=== PATIENT | female | born 1985 | race Caucasian/White ===

== ENCOUNTER 2018-10-14 09:30 | Outpatient (AMBR) | payer MEDICAID, SELFPAY ==
--- NOTE | 2018-10-04 10:58 | PTNOTE_ITS ---
PT OP Initial Eval Patient Information Visit Reasons: left shoulder Medical Diagnosis: M75.02; L73.2 Treatment Dx #1: Left Shoulder Mobility Deficits Treatment Dx #2: Left Shoulder Weakness Start of Care: 10/04/18 Initial Assessment Subjective Pt is a 33 y/o female with a skin condition (hidradenitis suppurativa) who recently had a skin graft in 2018 that failed due to infection. Pt has been sent to a specialist in [facility] and will have her second consultation October 21, 2018. At this point Pt is unsure of her treatment plan. Pt's wound doctor will like her to start physical therapy to maintain her left shoulder mobility. Pt further has Lupus which intermittently will cause her to have more inflammation. Pt's average left shoulder pain is 2-12/10 depended upon her activities and day. Pt currently has difficulty with lifting, chores, cooking, cleaning, overhead motions, sleeping, and performing her self care activities. Pt still attempts the gym as often as she can weekly working on her legs. Objective Left Shoulder AROM (with pain) Flexion: 85 deg Abduction: 35 deg External Rotation: 80 deg measure at 45 deg of abduction Internal Rotation: 70 deg meassure at 45 deg of abduction Left Shoulder PROM Flexion: 90 deg Abduction: 45 deg External and Internal Rotation: WFL Left Shoulder MMTs: grossly 3-/5 Left Scapula MMTs: grossly 3-/5 Assessment Pt demonstrate left shoulder mobility and strength deficits leading to decline function and difficulty with functional tasks. Pt still exhibit small open wounds underneath her left armpit, however, is safe to perform physical therapy. Pt will benefit from physical therapy to increase strength, mobility, and work on shoulder stability. Short Term and Skilled Nursing Goals 1) Decrease left shoulder pain to 2/10 in 8 wks to be able to perform self care activities 2) Increase left shoulder AROM WFL in 8 wks to be able to perform overhead motions 3) Increase left shoulder MMTs to 3+/5 in 8 wks to be able to perform lifting activities up to shoulder height 4) Increase left scapula MMTs to 3+/5 in 8 wks to be able to perform chores 5) Increase left shoulder PROM WNL in 8 wks to prevent frozen shoulder 6) Indep with HEP Treatment Plan 1) Manual Therapy 2) Therapeutic Activities 3) Therapeutic Exercises 4) This patient will be transfer to Hosea Burnett, PT, DPT Frequency and Duration 2 x wk for 8 wks Certification Dates: 10/04/18 to 01/04/19 Office Procedures PT Procedures PT Date of Service: 10/04/18 OP PT Arnol Mod Complex 30 minutes: Yes
--- NOTE | 2018-10-10 09:09 | PT.ODAYNRPT ---
PT Outpatient Daily Note Date of Service: October 10, 2018 OP Daily Note Visit Reasons: left shoulder Outpatient Physical Therapy Treatment Date: 10/10/18 Subjective: Pt reports open skin under L armpit that limits L shoulder ROM Objective: SEe F/S for therex MT: light PPM into FF, abd and ERot x10' Assessment: Shoulder elevation limited by open skin wounds in axilla and capsular tightness. Plan: Continue as tolerated Length of Time (minutes) of Treatment: 30 Minutes Office Procedures PT Procedures PT Date of Service: 10/04/18 OP PT Eval Mod Complex 30 minutes: Yes PT Procedures PT Date of Service: 10/10/18 Therapeutic Exercise 15 minutes: Yes Manual Roving Sizer 15 minutes: Yes
--- NOTE | 2018-10-14 11:43 | PTNOTE_ITS ---
PT Outpatient Daily Note Date of Service: October 14, 2018 OP Daily Note Visit Reasons: left shoulder Outpatient Physical Therapy Treatment Date: 10/14/18 Subjective: pt c/o pain as she pushes the wand upward but not when she brings the wand back down. Objective: see flow sheet. Assessment: during PROM her shoulder did not seem tight as she let me stretch her into flexion with good range. what prevents to push a bit more is her pain and discomfort. at times pt needed to be cued pt relax her shoulder during PROM as she is still guarded. Plan: continue POC per PT. Length of Time (minutes) of Treatment: 30 Minutes Office Procedures PT Procedures PT Date of Service: 10/04/18 OP PT Eval Mod Complex 30 minutes: Yes PT Procedures PT Date of Service: 10/10/18 Therapeutic Exercise 15 minutes: Yes Manual Seeing Eye Dog Teacher 15 minutes: Yes PT Procedures PT Date of Service: 10/14/18 Therapeutic Exercise 30 minutes: Yes
== END 2018-11-03 23:59 | disposition home or self-care (01) ==
PROVIDERS: PCP Family Medicine; Referring Provider Family Medicine; Visit Provider Surgery
DX: M75.02 Adhesive capsulitis of left shoulder (principal); L73.2 Hidradenitis suppurativa; E66.9 Obesity, unspecified; I10 Essential (primary) hypertension
CPT/HCPCS: 97110; 97140; 97162

== ENCOUNTER 2025-03-13 14:27 | Inpatient (IN) | payer MEDICAID, SELFPAY ==
[2025-03-13] VITALS (10 sets, daily range): BP systolic 120–136; BP diastolic 77–100; PULSE 104–128; RESP 15–98; TEMP 36–37.1; O2SAT 93–97; BMI 44.5
--- NOTE | 2025-03-13 14:38 | XR_ITS ---
Examination: AP chest single view Technique one AP portable upright chest single view Date and time: March 23, 2025 1446 hours Comparison March 10, 2020 INDICATIONS: Chest pain short of breath today. FINDINGS: Pneumonia diffusely in the left lung. Mild enlargement cardiac contour with moderate vascular congestion The osseous structures are intact IMPRESSION: Significant left lung pneumonia
--- NOTE | 2025-03-13 14:38 | EKG_ITS ---
[facility] Test Date: 2025-03-13 Pat Name: HARISH FUNES Department: Room: - Gender: Female [employer] Marker: : 1985 Requested By: Miroslava Roman Order Number: [id number] Reading MD: Miroslava Roman Measurements Intervals [place] Rate: 111 P: 53 DC: 141 QRS: 49 QRSD: 89 T: -10 QT: 340 QTc: 462 Interpretive Statements SINUS TACHYCARDIA POSSIBLE LEFT ATRIAL ENLARGEMENT [-0.1mV P-WAVE IN V1/V2] NONSPECIFIC ST & T-WAVE ABNORMALITY ABNORMAL RHYTHM ECG Compared to ECG 03/10/2020 17:23:53 No significant changes /store/S0/[id number]/ecg/[id number].pdf
--- NOTE | 2025-03-13 14:43 | EDNOTE_ITS ---
ED SOB =RME/HPI General Chief Complaint: Shortness of Breath/Dyspnea Stated Complaint: SOB Time Seen by Provider: 03/13/25 14:35 Arrival date/time: 03/13/25 14:27 RME / HPI RME / HPI Narrative: DR. ROCHA MAIN ED EVALUATION: 40-year-old female presents to the Emergency Department BIBA via EMS for shortness of breath. Per EMS, patient was tachypneic with severe rales, coughing up small amounts of blood, and oxygen saturation of 84% on room air, improved to 95% with non-rebreather mask. Blood pressure 132/84, heart rate 128 and in sinus tachycardia. Received nitroglycerin en route. No other symptoms at this time. PMHx: CHF (diagnosed 2019), pulmonary hypertension (2019), systemic lupus erythematosus (2010), and antiphospholipid antibody syndrome (2013), and obesity. PSHx: Cholecystectomy (2003), skin graft, and gastric sleeve (2015). Allergies: Tramadol. Social Hx: No tobacco, alcohol, or substance use. Related Data Home Medications ?Medication ?Instructions ?Recorded ?Confirmed aspirin 81 mg chewable tablet 81 mg PO QDAY 03/11/20 0 03/11/20 hydroxychloroquine 200 mg tablet 200 mg PO QDAY 03/11/20 (Plaquenil) sertraline 100 mg tablet 100 mg PO QDAY 03/11/2001/23 Previous Rx's ?Medication ?Instructions ?Recorded fluticasone propionate 50 50 mcg intranasal Q12H #18.2 grams 07/03/19 mcg/actuation nasal spray,suspension (Flonase Allergy Relief) Allergies Allergy/AdvReac Type Severity Reaction Status Date / Time tramadol Allergy Irritable Verified 03/13/25 14:39 Review of Systems Review of Systems Systems Reviewed: All systems reviewed, normal except as documented Past Medical History Past Medical History NEUROLOGIC: Positive Neurological Disorders and Migraine CARDIAC: Positive Cardiac Disorders RESPIRATORY: Positive Asthma and Sleep Apnea GASTROINTESTINAL: Positive Gastrointestinal Disorders, Gall Bladder Disease and Obesity REPRODUCTIVE: Positive Previous Pregnancies MUSCULOSKELETAL: Positive Musculoskeletal Disorders, Arthritis, Rheumatoid Arthritis, Scoliosis and Fibromyalgia ENDOCRINE: Positive Endocrine Disorders and Systemic Lupus Erythematosus HEMATOLOGIC: Positive Anemia and Clotting Problems PSYCHO/SOCIAL: Positive Depression, Anxiety, Depression and Post Traumatic Stress Disorder OTHER HISTORY: Positive Blood Transfusions and Chicken Pox Family History FAMILY HISTORY: Positive Family Cardiac Disorders and Family Surgery Surgical History SURGICAL: Positive Abdominal Surgery and Gastric Bypass Surgery OTHER SURGICAL HX: Hidradenitis suppurativa Social History SMOKING STATUS: Current some day smoker SUBSTANCE USE: marijuana (Edibles. Uses CBD oil) ED Exam Narrative Physical exam: GENERAL APPEARANCE: alert and oriented x 4, well-developed, well-nourished, no acute distress, obese VITALS: All vitals were reviewed and the pulse ox is 84% on room air, which is hypoxic according to my interpretation. HEENT: Normocephalic, atraumatic; pupils equal, round, reactive to light; EOMI; mucous membranes pink, moist; oropharynx clear NECK: Supple LUNGS: Tachypneic, mild dyspnea, scarring of bilateral lungs HEART: Regular rate, regular rhythm; normal S1, S2; no murmurs ABDOMEN: non distended; normal BS; soft, no tenderness, no guarding, no rebound; no masses, no organomegaly, no hernia BACK: no CVA tenderness EXTREMITIES: atraumatic; no edema NEUROLOGIC: awake; alert and oriented x4; cranial nerves II-XII grossly intact; no focal sensory or motor deficits PSYCHIATRIC: appropriate mood and affect SKIN: warm, dry, normal color; no rashes Course Quality Measures none Orders Category Date Time Status Bedside COVID-19 Antigen Test NOW Care 03/13/25 17:09 Active Bedside Influenza A&B Antigen Test NOW Care 03/13/25 17:[address] Screening NOW Care 03/13/25 14:44 Active Freight Claim Investigator NOW Care 03/13/25 14:38 Active EKG (ED ONLY) *Do not use* NOW Care 03/13/25 14:[address] angio chest Stat Exams 03/13/25 14:44 Completed EKG (ED Only) Stat Exams 03/13/25 14:38 Draft XR chest 1V portable Stat Exams 03/13/25 14:38 Completed B-Type Natriuretic Peptide Stat Lab 03/13/25 15:15 Completed Blood Culture (Lab) Stat Lab 03/13/25 17:42 Received CBC Stat Lab 03/13/25 15:15 Completed Comprehensive Metabolic Panel Stat Lab 03/13/25 15:15 Completed ESR [Sed Rate (ESR)] Stat Lab 03/13/25 15:15 Completed HCG,Qualitative Serum Stat Lab 03/13/25 15:15 Completed Lactate (Lactic Acid) Stat Lab 03/13/25 17:37 Received Lipase Stat Lab 03/13/25 15:15 Completed Magnesium Stat Lab 03/13/25 15:15 Completed Partial Thromboplastin Time Stat Lab 03/13/25 15:15 Completed Procalcitonin Stat Lab 03/13/25 17:37 Received Prothrombin Time with INR Stat Lab 03/13/25 15:15 Completed Troponin I Stat Lab 03/13/25 15:15 Completed Azithromycin Inj [Zithromax Inj] 500 mg Med 03/13/25 17:11 Active Sodium Chloride 0.9% 250 ml [Ns] 250 ml IV X1 Morphine Inj Med 03/13/25 16:38 Discontinued 5 mg IVP X1 ONE Ondansetron Inj [Zofran Inj] Med 03/13/25 16:38 Discontinued 4 mg IVP X1 ONE cefTRIAXone/D5w 1gm IV premix [Rocephin/D5w 1gm IV Med 03/13/25 17:11 Discontinued premix] 1 gm in 50 ml IV X1 Vital Signs Vital signs: Vital Signs Pulse Rate 119 H 03/13/25 14:41 Shortness of Breath / Dyspnea MDM Narrative MDM Narrative:: INyasia, am scribing for and in the presence of Dr. Rocha. Patient data External records reviewed:: [facility] previous records and EMS form Clinical information provided by:: patient and EMS Social determinants that could affect healthcare access:: none Patient has the following chronic illnesses:: PMHx: CHF (diagnosed 2019), pulmonary hypertension (2019), systemic lupus erythematosus (2010), and antiphospholipid antibody syndrome (2013), and obesity. PSHx: Cholecystectomy (2003), skin graft, and gastric sleeve (2015). Allergies: Tramadol. How is presenting disease/condition affected by chronic disease/condition?: exacerbated by Evaluation data The following diagnostics were reviewed and interpreted by me:: lab results, radiology exam(s) and EKG tracing(s) (My interpretation: EKG performed at 1456 hours, sinus tachycardia, rate 111, ST depressions in V3-V4, T wave inversion in lead 3) Lab and/or radiology exams considered but not ordered:: none Interpretation Summary: Procedure(s): XR chest 1V portable Accession Number(s): [id number] cc: Piotr Abreu MD; Miroslava Rocha MD~ Examination: AP chest single view Technique one AP portable upright chest single view Date and time: March 23, 2025 1446 hours Comparison March 10, 2020 INDICATIONS: Chest pain short of breath today. FINDINGS: Pneumonia diffusely in the left lung. Mild enlargement cardiac contour with moderate vascular congestion The osseous structures are intact IMPRESSION: Significant left lung pneumonia Dictated By: Piotr Abreu MD Procedure(s): CT angio chest Accession Number(s): [id number] cc: Karyna CaballeroP; Piotr Abreu MD; Miroslava Rocha MD~ Examination: CTA chest with intravenous contrast 2-D reconstructions 3-D reconstructions, vascular Date and time of exam: March 13, 2025 1659 hours INDICATIONS: Shortness of chest pain onset today CTDI: vol (mGy) 4.24 DLP: (mGycm) 565 Technique: Multiple axial sections of the thorax have been obtained. 3 mm slice thickness, from below the hemidiaphragms to above the apices of the lungs. Mediastinal and lung density settings have been obtained. 2-D sagittal and coronal reconstructions. 3-D angiographic renderings, 3-D volume renderings, 3D post processing, vascular maximum intensity projections obtained. Contrast administered is 100 cc Isovue-370. Low dose protocols were performed. One or more of the following dose reduction techniques were used; automated exposure control, adjustment of the mA and/or KV according to patient size, use of iterative reconstruction technique. Findings: No thoracic aortic aneurysmal dilatation or dissection Pulmonary artery segments are not enlarged No pulmonary artery emboli Multiple lymph nodes adjacent to the thoracic aortic arch, the largest 14 mm, lymph node adjacent to the main left pulmonary artery branch, 17 mm Subcentimeter pretracheal lymph nodes Mild enlargement cardiac contour Extensive opacity in both lungs consistent with pneumonia Mild splenomegaly 13 cm Liver mildly irregular in contour Absent gallbladder No pancreatic mass IMPRESSION: No thoracic aortic aneurysm dilatation or dissection Negative for pulmonary artery emboli Extensive bilateral pneumonia, suspicious for mild associated or heart failure. Nonspecific mediastinal lymphadenopathy. Mild splenomegaly Dictated By: Piotr Abreu MD Medications / Prescriptions Medications or Prescriptions considered but not ordered:: none Medication administrations:: Medication Administration History Azithromycin 500 mg/ Sodium (Chloride) 250 mls @ 250 mls/hr IV X1 ONE Stop: 03/13/25 18:10 Discontinued Medications Ceftriaxone Sodium/Dextrose (Rocephin/D5w 1gm Iv Premix) 1 gm in 50 mls @ 100 mls/hr IV X1 ONE Stop: 03/13/25 17:40 Last Admin: 03/13/25 17:46 Dose: 100 mls/hr Documented By: KAREN Morphine Sulfate (Morphine Sulf Inj 10 Mg/Ml Vial) 5 mg IVP X1 ONE Stop: 03/13/25 16:39 Last Admin: 03/13/25 16:45 Dose: 5 mg Documented By: KAREN Ondansetron HCl (Ondansetron Inj 2 Mg/Ml Inj 2 Ml) 4 mg IVP X1 ONE Stop: 03/13/25 16:39 Last Admin: 03/13/25 16:46 Dose: 4 mg Documented By: KAREN see above if any Consultations Consultation(s) initiated? (list below): Yes Consultation #1 (Physician, Specialty, Details): Discussed test HPI, PMHx, lab, radiology results and/or management with resident working with the hospitalist. Will admit for further evaluation and management. Accepts patient for admission. Time: 17:43 Diagnosis Shortness of Breath Differential Diagnosis: congestive heart failure, community acquired pneumonia, pulmonary embolism and other (acute decompensated heart failure) Most likely diagnosis given after review of the tests above:: CHF Pneumonia Hypoxia Admission Indicated Admission indicated?: indicated Admission Request Was there a request for admission?: Yes Admission Attestation Admission request attestation: Discussed case with [] from Hospitalist service regarding admission. Discussed patients ED course, exam findings, labs, and radiology results. The Hospitalist [agrees,declines] to accept the patient for admission. Disposition Plan Disposition Plan: Admit Discharge Plan Plan Patient Disposition: Admit Acute Care w/in Hospital Prescriptions/Referrals Prescriptions/Med Rec: No Action sertraline 100 mg Tablet 100 mg PO QDAY aspirin 81 mg Tablet,Chewable 81 mg PO QDAY hydroxychloroquine [Plaquenil] 200 mg Tablet 200 mg PO QDAY fluticasone propionate [Flonase Allergy Relief] 50 mcg/actuation spray,suspension 50 mcg INTRANASAL Q12H Qty: 18.2 0RF Rx Instructions: administer into each nostril Referrals: Karyna Caballero FNP [Primary Care Provider] - In 1 week Problem List Clinical Impression: CHF (congestive heart failure), Pneumonia, Hypoxia Patient/Caregiver Discharge Instructions Print Language: Mongolian Stand Alone Forms: Marina Award Info., Patient Portal Info Letter
[2025-03-13 15:33] LABS: Basophils # (Auto) 0.1 Thou/mm3 (0.0-0.2); Basophils % (Auto) 1 % (0-2.5); Eosinophils # (Auto) 0.1 Thou/mm3 (0.0-0.5); Eosinophils % (Auto) 1 % (0-10); Hematocrit 30.5 % (36.0-46.0); Hemoglobin 9.1 g/dL (12.0-16.0); Immature Granulocytes Auto 0.05 Thou/mm3 (0.00-0.00); Lymphocytes # (Auto) 0.9 Thou/mm3 (1.0-4.8); Lymphocytes % (Auto) 8 % (10-50); Mean Corpuscular HGB Conc 29.8 g/dl (31.0-37.0); Mean Corpuscular Hemoglobin 22.2 pg (25.0-35.0); Mean Corpuscular Volume 75 fL (80-100); Monocytes # (Auto) 0.4 Thou/mm3 (0.0-0.8); Monocytes % (Auto) 4 % (0-12); Neutrophils # (Auto) 8.9 Thou/mm3 (1.8-7.7); Neutrophils % (Auto) 86 % (37-80); Nucleated Red Blood Cell # 0.00 Thou/mm3 (0.00-0.00); Nucleated Red Blood Cell % 0 /100 WBC (0); Platelet Count 185 Thou/mm3 (140-440); RDW Standard Deviation 48.0 fL (36.4-46.3); Red Blood Count 4.09 Miln/mm3 (4.00-5.20); White Blood Count 10.4 Thou/mm3 (3.6-11.0)
[2025-03-13 15:49] LABS: B-Type Natriuretic Peptide 71 pg/mL (0-100)
[2025-03-13 15:51] LABS: INR 1.2 (0.9-1.3); Partial Thromboplastin Time 42.4 Seconds (22.0-36.0); Prothrombin Time 13.0 Seconds (9.0-12.2)
[2025-03-13 16:02] LABS: Alanine Aminotransferase 8 U/L (10-49); Albumin, Serum 3.5 gm/dL (3.5-5.0); Albumin/Globulin Ratio 1.1 (1.2-2.2); Alkaline Phosphatase 72 U/L (46-116); Anion Gap 9 (7-16); Aspartate Amino Transferase 17 U/L (0-34); BUN/Creatinine Ratio 12 Ratio (12-20); Bilirubin,Total 0.4 mg/dL (0.3-1.2); Blood Urea Nitrogen 12 mg/dL (9-23); Calcium 8.6 mg/dL (8.3-10.6); Calcium (Corrected) 9.0 mg/dL (8.5-10.1); Carbon Dioxide 24.8 mMol/L (20.0-31.0); Chloride 106 mMol/L (98-107); Creatinine (Component) 1.0 mg/dL (0.6-1.3); Estimated Creatinine Clearance 89.1 mL/min (>60); Globulin 3.2 gm/dL (2.3-3.5); Glucose 95 mg/dL (74-106); Lipase 27 U/L (12-53); Magnesium 1.9 mg/dL (1.6-2.6); Osmolality,Calculated 279 (275-295); Potassium 3.5 mMol/L (3.4-5.1); Sodium 140 mMol/L (136-145); Total Protein 6.7 gm/dL (5.7-8.2); Troponin I < 0.020 ng/mL (0.0-0.045); eGFR > 60 See Note
[2025-03-13 16:09] LABS: Sed Rate (ESR) 107 mm/hr (0-20)
[2025-03-13 16:36] LABS: HCG,Qualitative Serum Negative
[2025-03-13] MEDS: MORPHINE SULF INJ 10 MG/ML VIAL 5 MG IVP (16:45)
[2025-03-13] MEDS: ONDANSETRON INJ 2 MG/ML INJ 2 ML 4 MG IVP (16:46)
[2025-03-13] MEDS: cefTRIAXone/D5w 1gm IV premix 1 GM/50 ML BAG IV (17:46)
[2025-03-13 17:52] LABS: Lactate (Lactic Acid) 1.3 mMol/L (0.4-2.0)
[2025-03-13 18:29] LABS: Procalcitonin 0.12 ng/ml (0.0-0.49)
[2025-03-13] MEDS: AZITHROMYCIN INJ 500 MG in SODIUM CHLORIDE 0.9% 250 ML 250 ML 250 MG IV (18:39)
[2025-03-13] MEDS: ALBUTEROL/IPRATROPIUM (Duoneb) RT SOL 3 ML NEBU INH (19:56)
--- NOTE | 2025-03-13 19:56 | PC.NURSE ---
SPOKE WITH DR. CHRISTIE VIA TELEPHONE REGARDING LASIX AND HEPARIN MEDICATIONS, PER PATIENT SHE TOOK LASIX 40MG PO AND COUMADIN 1MG TODAY, DR. CHRISTIE MADE AWARE AND ORDERED TO HOLD LASIX AND HEPARIN DOSE FOR TONIGHT.
--- NOTE | 2025-03-13 20:49 | ESHP_ITS ---
<Statement entered by Chente Sinha MD - 03/14/25 15:54> I have reviewed the note and agree with the resident's assessment & plan with exceptions as below. I have personally reviewed labs, imaging, home meds/prior records, examined the patient, formulated and discussed management plan with the IM team. And SLE. Patient reports that she took a break from seeing doctors and has been off of a number of medicines. She also reports that she has been coughing up some blood. She reports that a lot of her medical records are at [place]. Patient examined at bedside today. Patient does have a history of antiphospholipid syndrome, pulmonary hypertension, CHF, ligament endocarditis, she says that she used to continues to take warfarin and check her INR levels at home, however she has not been taking her medicine lately as she is out of the equipment to test her INR. Patient will need further workup including CHF workup and pneumonia treatment as patient was found to have extensive bilateral pneumonia which was seen on CTA. Will initiate antibiotics and continue with IV diuresis. Repeat hematology and chemistry in the a.m. Will need a thorough med rec for patient, will likely need to optimize patient's INR if patient has not been taking their warfarin as they are at high risk for stroke with antiphospholipid syndrome. #Acute hypoxic respiratory failure #Antiphospholipid syndrome #SLE #Community-acquired pneumonia #Hemoptysis #Hidradenitis suppurativa Chente Sinha, PGY-2 Internal Medicine Documentation for date of: 03/13/25 HPI History of Present Illness History of present illness: Patient is a 40-year-old female with past medical history of CHF and pulmonary hypertension diagnosed in 2019, SLE diagnosed in 2010, antiphospholipid antibody syndrome diagnosed in 2013, endocarditis, hidradenitis suppurativa, obesity presented to the emergency department with shortness of breath. Patient states that she has a history of trouble sleeping at night, went to bed early in the morning and ended up waking up waking up at 1:30 PM this afternoon short of breath as soon as she sat up. She stated that her chest felt crunchy and proceeded to take her water pill, Lasix. Patient got in a hot shower thinking it would help her breathe better, but then she started coughing and she noticed there was some blood in the sputum. She states she coughed a few times with blood showing up. Patient states that she has not taken Lasix in 2 days because she has forgotten. Patient states that she chipped her tooth 2 days ago and was taking amoxicillin for it. Patient states she takes warfarin for antiphospholipid antibody syndrome, states she needs refills for her at home INR machine. Patient endorses voluntary weight loss of around 150 pounds in the last 5 years, palpitations, chronic sinusitis and anxiety. Patient denies fever headache dyspnea chest pain, abdominal pain nausea vomiting, diarrhea, constipation, dysuria, hematuria. Past Medical History: above Family History: Heart problems in mother, aunt, dad. No known SLE fam hx. Surgical History: Kate (2004), skin graft, gastric sleeve (2016) Social History: Uses a vape pen, occasional alcohol; hx of meth & cocaine 20+ years ago Current Medications: Patient states she takes 10 mg [place], muscle relaxant 10 mg, 40 mg sleep medication (not melatonin), 20 mg melatonin, cannabis Gummies for sleep, 1 mg warfarin (patient reported INR goal of 3-4), iron 325 mg nightly, Lasix 40 mg daily Allergies: Tramadol ED Course: -Initial vitals were Oxygen saturation of 84 that went up to 95% with nonrebreather, blood pressure 132/84, heart rate 128. -Labs significant for WBC 10.4, hemoglobin 9.1 with MCV 75, PT 13.0, INR 1.2, APTT 42.4. Blood cultures drawn -Imaging included Chest x-ray showed significant left lung pneumonia, chest CTA was negative for aneurysm, dissection, pulmonary artery emboli; extensive bilateral pneumonia suspicious for mild associated or heart failure, nonspecific mediastinal lymphadenopathy, mild splenomegaly. EKG showed sinus tachycardia with possible left atrial enlargement -In the ED, patient was given Morphine 5 mg, ondansetron 4 mg x 1, ceftriaxone 1 g. -Patient was admitted for evaluation and management of respiratory failure. Review of Systems Review of systems otherwise negative except what is mentioned above. Exam Vital Signs Temp Pulse Resp BP Pulse Ox O2 Del Method O2 Flow Rate 98.2 F 108 H 16 127/93 H 95 Room Air 2 03/13/25 18:46 03/13/25 20:06 03/13/25 20:06 03/13/25 19:24 03/13/25 20:00 03/13/25 18:46 03/13/25 16:49 Narrative Exam General: No acute distress; A&Ox3; Skin: Extensive hidradenitis suppurativa under both armpits extending down both mid axillary lines rounding out under the breasts bilaterally and in the pubic area extending posteriorly to the gluteal area, does not appear infected; livedo reticularis present on extremities. Warm, dry, intact, no obvious rash. HENT: NCAT, EOMI, not icteric. External ears normal. No rhinorrhea. Moist mucous membranes Cardiovascular: Regular rate and rhythm, no murmur, +S1/S2. Respiratory: Lungs CTAB GI: Soft, nontender, non-distended. No guarding or rebound tenderness. Extremities: no edema, no cyanosis, no clubbing. Extremity pulses present Neuro: No focal deficits observed. Conversant, moving all extremities. No overt cerebellar signs/incoordination. Psychiatric: Cooperative, appropriate affect. Results: Labs 03/14/25 05:10 03/14/25 05:10 Labs: Short CBC 03/13/25 Range/Units 15:15 WBC 10.4 (3.6-11.0) Thou/mm3 Hgb 9.1 L (12.0-16.0) g/dL Hct 30.5 L (36.0-46.0) % Plt Count 185 (140-440) Thou/mm3 BMP 03/13/25 15:15 Sodium 140 Potassium 3.5 Chloride 106 Carbon Dioxide 24.8 BUN 12 Creatinine 1.0 Glucose 95 Calcium 8.6 Cardiac Enzymes 03/13/25 Range/Units 15:15 Troponin I < 0.020 (0.0-0.045) ng/mL Liver Function 03/13/25 Range/Units 15:15 Total Bilirubin 0.4 (0.3-1.2) mg/dL AST 17 (0-34) U/L ALT 8 L (10-49) U/L Alkaline Phosphatase 72 (46-116) U/L Albumin 3.5 (3.5-5.0) gm/dL Quality Measures Quality Measures VTE prophylaxis Medications Home Medications and Allergies Home Medications ?Medication ?Instructions ?Recorded ?Confirmed ?Type aspirin 81 mg chewable tablet 81 mg PO QDAY 03/11/20 0 03/13/25 History hydroxychloroquine 200 mg tablet 200 mg PO QDAY 03/13/25 History (Plaquenil) sertraline 100 mg tablet 100 mg PO QDAY 03/11/2003/30 History albuterol sulfate 90 mcg/actuation 2 puff inhalation Q 4H PRN 03/13/25 03/13/25 History aerosol inhaler shortness of breath or wheez ing azithromycin 250 mg tablet 250 mg PO QDAY 03/13/2503/30 History cyclobenzaprine 10 mg tablet 10 mg PO HS 03/13/2503/30 History ferrous sulfate 325 mg (65 mg 325 mg PO QDAY 03/13/25 03/13/25 History iron) tablet furosemide 40 mg tablet (Lasix) 40 mg PO QDAY 03/13/25 03/13/25 History nitroglycerin 0.4 mg sublingual 0.4 mg buccal Q5MIN CA N chest pain 03/13/25 03/13/25 History tablet tirzepatide (weight loss) 12.5 12.5 mg subcut QWEEK 03/13/25 History mg/0.5 mL subcutaneous pen injector (Zepbound) trazodone 50 mg tablet 50 mg PO HS PRN sleep 03/13/25 History warfarin 1 mg tablet 1 mg PO QDAY 03/13/25 History Allergies Allergy/AdvReac Type Severity Reaction Status Date / Time tramadol Allergy Irritable Verified 03/13/25 14:39 Visit Medications Acetaminophen (Acetaminophen 325 Mg Tablet) 650 mg PO Q6H PRN PRN Reason: Fever >100.0 or pain 1-3 Stop: 04/12/25 18:41 Hydrocodone Bitart/Acetaminophen (Hydrocodone/Apap 10/325 Tab) 1 tab PO Q4HR PRN PRN Reason: PAIN SCALE 7-10 (Severe Stop: 03/18/25 18:41 Hydrocodone Bitart/Acetaminophen (Hydrocodone/Apap 5/325 Tablet) 1 tab PO Q4HR PRN PRN Reason: PAIN SCALE 4-6 (Moderate Stop: 03/18/25 18:52 Albuterol/Ipratropium (Albuterol/Ipratropium (Duoneb) Rt Estefany 3 Ml Nebu) 3 ml INH Q6HRRT ASH Stop: 04/12/25 18:59 Last Admin: 03/13/25 19:56 Dose: 3 ml Furosemide (Furosemide Inj 10 Mg/Ml 4ml Vial) 40 mg IVP BIDD [facility] Stop: 04/13/25 05:59 Heparin Sodium (Porcine) (Heparin Sod Inj 5000 Unit/Ml Vial) 5,000 unit SC Q12HR [facility] Stop: 03/27/25 18:59 Last Admin: 03/13/25 19:32 Dose: Not Given Ceftriaxone Sodium/Dextrose (Rocephin/D5w 1gm Iv Premix) 1 gm in 50 mls @ 100 mls/hr IV QDAY [facility] Stop: 03/21/25 08:59 Azithromycin 500 mg/ Sodium (Chloride) 250 mls @ 250 mls/hr IV QDAY [facility] Stop: 03/21/25 08:59 Melatonin (Melatonin 3 Mg Tablet) 3 mg PO HS [facility] Stop: 04/12/25 20:59 Last Admin: 03/13/25 20:46 Dose: Not Given Ondansetron HCl (Ondansetron Inj 2 Mg/Ml Inj 2 Ml) 4 mg IVP Q6H PRN; Protocol PRN Reason: NAUSEA OR VOMITING Stop: 04/12/25 18:41 Pantoprazole Sodium (Pantoprazole Inj 40 Mg Vial) 40 mg IVP QDAY [facility] Stop: 04/13/25 08:59 Discontinued Medications Cyclobenzaprine HCl (Cyclobenzaprine 5 Mg Tablet) 5 mg PO X1 ONE Stop: 03/13/25 18:57 Last Admin: 03/13/25 19:04 Dose: 5 mg Furosemide (Furosemide Inj 10 Mg/Ml 4ml Vial) 40 mg IVP X1 ONE Stop: 03/13/25 18:54 Last Admin: 03/13/25 19:24 Dose: Not Given Azithromycin 500 mg/ Sodium (Chloride) 250 mls @ 250 mls/hr IV X1 ONE Stop: 03/13/25 18:10 Last Infusion: 03/13/25 19:40 Dose: Infused Ceftriaxone Sodium/Dextrose (Rocephin/D5w 1gm Iv Premix) 1 gm in 50 mls @ 100 mls/hr IV X1 ONE Stop: 03/13/25 17:40 Last Infusion: 03/13/25 18:39 Dose: Infused Morphine Sulfate (Morphine Sulf Inj 10 Mg/Ml Vial) 5 mg IVP X1 ONE Stop: 03/13/25 16:39 Last Admin: 03/13/25 16:45 Dose: 5 mg Ondansetron HCl (Ondansetron Inj 2 Mg/Ml Inj 2 Ml) 4 mg IVP X1 ONE Stop: 03/13/25 16:39 Last Admin: 03/13/25 16:46 Dose: 4 mg Assessment & Plan Plan Assessment Patient is a 40-year-old female with past medical history of CHF and pulmonary hypertension diagnosed in 2019, SLE diagnosed in 2010, antiphospholipid antibody syndrome diagnosed in 2013, endocarditis, hidradenitis suppurativa, obesity presented to the emergency department with shortness of breath. Patient was admitted for evaluation and management of respiratory failure. # Pneumonia, bilateral, likely secondary to gram-negative versus atypical organisms #Acute Hypoxic Respiratory Failure secondary to above #History of CHF, BNP 71 on arrival, unlikely to be an exacerbation #hx of endocarditis Possibly due to CHF exacerbation after patient endorsed not taking her lasix for 2 days. Possibly due to pneumonia with WBC 10.4, elevated HR 110s, with imaging suggestive of it. Patient breathing well on 2L NC at 97% O2. Admission: Pro-emelia 0.12, BNP 71 CXR: significant left lung pneumonia; Chest CTA was negative for aneurysm, dissection, pulmonary artery emboli; extensive bilateral pneumonia suspicious for mild associated or heart failure Patient given rocephin 1 gm in ED -Patient will start azithromycin 500 mg and Rocephin 1 gm in the morning -Echo ordered -Patient given DuoNeb inhalers every 6 hours as needed -Will start Lasix 40 mg twice daily tomorrow morning -Ordered cbc, cmp, TSH, lipid panel, A1c will follow-up -Blood cultures drawn, follow up -strict I/O's -daily weight #Hemoptysis #anemia Hemoglobin on admission is 9.1 with MCV of 75 May be due to iron deficiency anemia, surgical history of gastric sleeve may also be contributing regarding absorption Patient states she takes 3 and 25 mg iron every night. Patient stated she was coughing up blood this morning Patient states has not been coughing up blood anymore Denies noticing blood in any bowel movements. ? Will continue to monitor for signs and symptoms of bleeding ? Will continue to monitor hemoglobin #SLE #hx of antiphospholipid antibody body syndrome #hx of endocarditis Patient states she takes warfarin 1 mg with goal INR of 3-4 for history of antiphospholipid antibody syndrome diagnosed in 2013 -Will order and continue to monitor coags -Echo ordered #hidradenitis suppurativa, severe Extensive hidradenitis suppurativa under both armpits extending down both mid axillary lines rounding out under the breasts bilaterally and in the pubic area extending posteriorly to the gluteal area, Patient has it covered with gauze; treats it symptomatically at home; does not appear infected. -will continue to monitor for infection. Hospital Management: Disposition: tele Diet: Cardiac GI Prophylaxis: none Bowel Prophylaxis:Protonix 40 mg q day DVT Prophylaxis: heparin CODE STATUS: Full Code Patient plan of care was discussed with the attending physician, Dr. Gastelum & senior resident Dr. Bharath Martinez MD PGY-1 Attending Provider Attestation/Addendum After examination of the patient and review of the clinical data I feel that this patient needs admission to the hospital for further treatment/evaluation. I have discussed and was present for the essential components of the history, physical examination, diagnosis, and treatment plan with the resident. I agree with the patient's care as documented by the resident and amended herein by me. Tello Gastelum DO. Although this document has been carefully reviewed, there may still be some phonetic and other typographical errors. These errors are purely grammatical due to imperfections in the software program and should not be construed in any way to compromise the substance of the patient's medical care during this visit.
[2025-03-14] VITALS (11 sets, daily range): BP systolic 93–132; BP diastolic 57–92; PULSE 90–114; RESP 15–100; TEMP 35.9–36.8; O2SAT 94–100; BMI 45.5
[2025-03-14] MEDS: ALBUTEROL/IPRATROPIUM (Duoneb) RT SOL 3 ML NEBU INH ×4 (01:16→19:07)
[2025-03-14 06:11] LABS: INR 1.3 (0.9-1.3); Partial Thromboplastin Time 46.7 Seconds (22.0-36.0); Prothrombin Time 14.0 Seconds (9.0-12.2)
[2025-03-14 06:22] LABS: Basophils # (Auto) 0.1 Thou/mm3 (0.0-0.2); Basophils % (Auto) 1 % (0-2.5); Eosinophils # (Auto) 0.2 Thou/mm3 (0.0-0.5); Eosinophils % (Auto) 2 % (0-10); Hematocrit 27.1 % (36.0-46.0); Hemoglobin 8.1 g/dL (12.0-16.0); Immature Granulocytes Auto 0.03 Thou/mm3 (0.00-0.00); Lymphocytes # (Auto) 1.4 Thou/mm3 (1.0-4.8); Lymphocytes % (Auto) 20 % (10-50); Mean Corpuscular HGB Conc 29.9 g/dl (31.0-37.0); Mean Corpuscular Hemoglobin 22.8 pg (25.0-35.0); Mean Corpuscular Volume 76 fL (80-100); Monocytes # (Auto) 0.5 Thou/mm3 (0.0-0.8); Monocytes % (Auto) 7 % (0-12); Neutrophils # (Auto) 5.0 Thou/mm3 (1.8-7.7); Neutrophils % (Auto) 70 % (37-80); Nucleated Red Blood Cell # 0.00 Thou/mm3 (0.00-0.00); Nucleated Red Blood Cell % 0 /100 WBC (0); Platelet Count 149 Thou/mm3 (140-440); RDW Standard Deviation 49.5 fL (36.4-46.3); Red Blood Count 3.56 Miln/mm3 (4.00-5.20); White Blood Count 7.2 Thou/mm3 (3.6-11.0)
[2025-03-14 06:49] LABS: Alanine Aminotransferase < 7 U/L (10-49); Albumin, Serum 3.2 gm/dL (3.5-5.0); Albumin/Globulin Ratio 1.1 (1.2-2.2); Alkaline Phosphatase 65 U/L (46-116); Anion Gap 10 (7-16); Aspartate Amino Transferase 20 U/L (0-34); BUN/Creatinine Ratio 8 Ratio (12-20); Bilirubin,Total 0.3 mg/dL (0.3-1.2); Blood Urea Nitrogen 9 mg/dL (9-23); Calcium 8.4 mg/dL (8.3-10.6); Calcium (Corrected) 9.0 mg/dL (8.5-10.1); Carbon Dioxide 26.2 mMol/L (20.0-31.0); Cardiac Risk Estimate 3.0 RATIO (3.7-5.6); Chloride 103 mMol/L (98-107); Cholesterol 149 mg/dL (132-200); Creatinine (Component) 1.1 mg/dL (0.6-1.3); Estimated Creatinine Clearance 82.1 mL/min (>60); Globulin 3.0 gm/dL (2.3-3.5); Glucose 108 mg/dL (74-106); HDL Cholesterol 49 mg/dL (40-60); LDL Cholesterol,Calculated 83 mg/dL (0-130); Magnesium 1.9 mg/dL (1.6-2.6); Osmolality,Calculated 277 (275-295); Phosphorous 4.4 mg/dL (2.4-5.1); Potassium 4.1 mMol/L (3.4-5.1); Sodium 139 mMol/L (136-145); Thyroid Stimulating Hormone 5.62 uIU/mL (0.55-4.78); Total Protein 6.2 gm/dL (5.7-8.2); Triglycerides 85 mg/dL (30-150); eGFR > 60 See Note
[2025-03-14 08:18] LABS: Free T4 (Free Thyroxine) 1.00 ng/dL (0.89-1.76)
[2025-03-14] MEDS: cefTRIAXone/D5w 1gm IV premix 1 GM/50 ML BAG IV (08:21)
[2025-03-14] MEDS: AZITHROMYCIN INJ 500 MG in SODIUM CHLORIDE 0.9% 250 ML 250 ML 250 MG IV (09:18)
--- NOTE | 2025-03-14 09:38 | PC.SS ---
SECURITIES RESEARCH ANALYST conducted bedside contact with the patient conduct initial assessment and to discuss discharge planning.? Patient confirmed demographic information.? Patient resides at home with adult children.? Patient does not utilize any form of DME to assist with ambulation.? Patient does not utilize home oxygen.? Patient possesses a C-PAP but does not utilize machine.? Patient describes the ability to complete ADL?s independently.? Patient identified mother, Amna Snyder ; as surrogate medical decision maker.? Patient?s PCP is Karyna Caballero.? Patient?s [place] specialist is Dr. Ring.? Patient does not participate with dialysis.? Plan is for the patient to return home at the time of discharge.? Family will provide transportation on behalf of the patient. ?No further discharge needs identified by the patient.? No further intervention required at this time, manager social media will be available to address any further concerns.? Next of Kin: Amna Claudio D/C Plan: Home
[2025-03-14] MEDS: ASPIRIN EC 81 MG TABEC PO (09:54)
[2025-03-14] MEDS: WARFARIN 5 MG TABLET PO (12:09)
--- NOTE | 2025-03-14 14:29 | ESCONSULT_ITS ---
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 It is questionable whether she has a cardiac thrombi she claims that she has a cardiac thrombus by echo in [facility] however an echo at the same time in this hospital showed only a possible evidence of endocarditis Libman-Sacks type on the mitral valve vegetation like structure but not a thrombus. No clear ERICKSON thrombus or LV thrombus was seen. At this time I do not see a compelling indication for chronic anticoagulation since there is no clear documented thromboembolic phenomena such as DVT or stroke. Considering that she is having hemoptysis we will hold off warfarin for now get records from other hospital to see if there was a clear evidence of cardiac thrombi which is unusual in a patient with antiphospholipid syndrome. Discussed about all his options we will continue to monitor the patient closely. Evaluated patient with resident physician PGY 2 will continue to follow patient HPI Data of Consult Requesting Physician: Benjamin Gastelum DO Admitting Provider: Benjamin Gastelum DO Attending Provider: Benjamin Gastelum DO Primary Care Provider: MIHAI Bowden Consult Narrative History of present illness: Pt is a 40 y/o F with a complex PMH including CHF and pulm HTN (dx 2019), SLE (dx 2010), positive antiphospholipid Ab (2013), h/o Libman-Sacks endocarditis 2019, hidradenitis suppurativa, and obesity s/p gastric sleeve (2015). She presented to ED c/o SOB on awakening, described ?crunchy? chest, took Lasix (had missed 2 prior days), then developed hemoptysis after a hot shower. Also reports taking amoxicillin for a chipped tooth. No CP, abd pain, or fever. She has had 150 lb voluntary weight loss over 5 yrs and reports anxiety, palpitations, and chronic sinusitis. She uses a vape pen and occasional EtOH; remote hx of meth/cocaine. Meds include warfarin (goal INR 3?4), Lasix, [place], iron, melatonin, and cannabis gummies. Allergic to tramadol. She was admitted in 2019 for suspected shortness of breath with suspected heart failure. At that time echocardiogram showed normal ejection fraction, with the addition of Libman-Sacks endocarditis following the mitral valve. At the time, she was following up with [facility] rheumatology for SLE, unclear if she has been following. In addition, she was found anemic, GI was on board, however did not complete workup as she left [place]. She reports she was seen by Cruz HEREDIA after she left the hospital. She states she was diagnosed with thrombus in her heart , unable to elaborate on the nature or location of the thrombus. She was discharged on LOVENOX which she discontinued, did not want injection, subsequently seen by her [employer] who transitioned her to WARFARIN 1 mg which she is states has been taking. She reports she does have an INR machine at home, states her INR usually runs around 3-4 which is the target she was given by Cruz. However, she dates she is currently hasn't been taking WARFARIN for 3 days in preparation for procedure for hidradenitis suppurativa. ED Course: O2 sat was 84%, improved to 95% on NRB. BP 132/84, HR 128. WBC 10.4, Hgb 9.1, INR 1.2. Imaging: CXR showed LLL PNA, bilateral infiltrates possibly HF-related; CTA chest negative for PE, dissection, aneurysm. EKG: ST with possible LAE. Given ceftriaxone, morphine, ondansetron in ED. Admitted for acute hypoxic respiratory failure. PE: Pt A&Ox3, no acute distress. Extensive non-infected hidradenitis under axillae, breasts, groin, gluteal region. Lungs CTAB; heart RRR, no murmur. No edema. Neuro intact. Skin shows livedo reticularis. Plan: Echo from 2019 was reviewed. As stated above, lipid Sachs endocarditis present but no thrombus was seen. Although she has positive antiphospholipid antibodies, unclear if he actually has the syndrome. Reports no history of DVT, PE or stroke in the past. The likelihood of having an intraventricular thrombus are very low. Patient herself is a very poor historian, does not know her medical history very well. However, we requested records from [place] to look for indications for long-term WARFARIN use. However given the fact that INR has been subtherapeutic, no history of thromboembolic disease, and concern for hemoptysis at this time, will hold WARFARIN until we obtain records from [place]. cc:: cc: Benjamin Gastelum, DO Exam Vital Signs Temp Pulse Resp BP Pulse Ox O2 Del Method O2 Flow Rate 98.3 F 95 20 100/66 100 Room Air 2 03/14/25 12:00 03/14/25 12:59 03/14/25 12:59 03/14/25 12:00 03/14/25 12:59 03/14/25 12:00 03/13/25 16:49 Narrative Exam GENERAL * Obese female, NAD, on room air. HEENT * NCAT.?JEFFERY. Oral mucosa is moist. Patent Nares NECK * Supple, nontender, no JVD. CHEST * RRR, no m/g/r * CTAB, no w/r/r, symmetrical expansion. ABDOMEN * Soft, flat, nontender. No guarding/rebound tenderness/masses. * Bowel sounds presents EXTREMITIES * No edema/cyanosis.? SKIN * Warm and dry, no jaundice/rashes. * Extensive hidradenitis suppurativa under both armpits. NEUROMUSCULAR * No focal neurologic deficits. PSYCHIATRY * Normal mood and affect, cooperative, no SI or HI or hallucinations. Results Labs 03/14/25 05:10 03/14/25 05:10 Labs: Short CBC 03/13/25 03/14/25 Range/Units 15:15 05:10 WBC 10.4 7.2 (3.6-11.0) Thou/mm3 Hgb 9.1 L 8.1 L (12.0-16.0) g/dL Hct 30.5 L 27.1 L (36.0-46.0) % Plt Count 185 149 D (140-440) Thou/mm3 BMP 03/13/25 03/14/25 15:15 05:10 Sodium 140 139 Potassium 3.5 4.1 D Chloride 106 103 Carbon Dioxide 24.8 26.2 BUN 12 9 Creatinine 1.0 1.1 Glucose 95 108 H Calcium 8.6 8.4 Cardiac Enzymes 03/13/25 Range/Units 15:15 Troponin I < 0.020 (0.0-0.045) ng/mL Liver Function 08/08/25 08/09/25 Range/Units 15:15 05:10 Total Bilirubin 0.4 0.3 (0.3-1.2) mg/dL AST 17 20 (0-34) U/L ALT 8 L < 7 L (10-49) U/L Alkaline Phosphatase 72 65 (46-116) U/L Albumin 3.5 3.2 L (3.5-5.0) gm/dL Quality Measures Quality Measures VTE prophylaxis Medications Home Medications and Allergies Home Medications ?Medication ?Instructions ?Recorded ?Confirmed ?Type aspirin 81 mg chewable tablet 81 mg PO QDAY 03/11/20 0 03/13/25 History hydroxychloroquine 200 mg tablet 200 mg PO QDAY 03/13/25 History (Plaquenil) sertraline 100 mg tablet 100 mg PO QDAY 03/11/2003/30 History albuterol sulfate 90 mcg/actuation 2 puff inhalation Q 4H PRN 03/13/25 03/13/25 History aerosol inhaler shortness of breath or wheez ing azithromycin 250 mg tablet 250 mg PO QDAY 03/13/2503/30 History cyclobenzaprine 10 mg tablet 10 mg PO HS 03/13/2503/30 History ferrous sulfate 325 mg (65 mg 325 mg PO QDAY 03/13/25 03/13/25 History iron) tablet furosemide 40 mg tablet (Lasix) 40 mg PO QDAY 03/13/25 03/13/25 History nitroglycerin 0.4 mg sublingual 0.[address] N chest pain 03/13/25 03/13/25 History tablet tirzepatide (weight loss) 12.5 12.5 mg subcut QWEEK 03/13/25 History mg/0.5 mL subcutaneous pen injector (Zepbound) trazodone 50 mg tablet 50 mg PO HS PRN sleep 03/13/25 History warfarin 1 mg tablet 1 mg PO QDAY 03/13/25 History Allergies Allergy/AdvReac Type Severity Reaction Status Date / Time tramadol Allergy Irritable Verified 03/13/25 14:39 Visit Medications Acetaminophen (Acetaminophen 325 Mg Tablet) 650 mg PO Q6H PRN PRN Reason: Fever >100.0 or pain 1-3 Stop: 04/12/25 18:41 Hydrocodone Bitart/Acetaminophen (Hydrocodone/Apap 10/325 Tab) 1 tab PO Q4HR PRN PRN Reason: PAIN SCALE 7-10 (Severe Stop: 03/18/25 18:41 Last Admin: 03/14/25 13:57 Dose: 1 tab Hydrocodone Bitart/Acetaminophen (Hydrocodone/Apap 5/325 Tablet) 1 tab PO Q4HR PRN PRN Reason: PAIN SCALE 4-6 (Moderate Stop: 03/18/25 18:52 Albuterol/Ipratropium (Albuterol/Ipratropium (Duoneb) Rt Estefany 3 Ml Nebu) 3 ml INH Q6HRRT ASH Stop: 04/12/25 18:59 Last Admin: 03/14/25 12:58 Dose: 3 ml Aspirin (Aspirin Ec 81 Mg Tabec) 81 mg PO DAILY ASH Stop: 04/13/25 08:59 Last Admin: 03/14/25 09:54 Dose: 81 mg Cyclobenzaprine HCl (Cyclobenzaprine 5 Mg Tablet) 10 mg PO HS [facility] Stop: 04/13/25 20:59 Furosemide (Furosemide Inj 10 Mg/Ml 4ml Vial) 40 mg IVP BIDD ASH Stop: 04/13/25 05:59 Last Admin: 03/14/25 05:27 Dose: Not Given Heparin Sodium (Porcine) (Heparin Sod Inj 5000 Unit/Ml Vial) 5,000 unit SC Q12HR ASH Stop: 03/27/25 18:59 Last Admin: 03/14/25 08:22 Dose: Not Given Ceftriaxone Sodium/Dextrose (Rocephin/D5w 1gm Iv Premix) 1 gm in 50 mls @ 100 mls/hr IV QDAY ASH Stop: 03/21/25 08:59 Last Admin: 03/14/25 08:21 Dose: 100 mls/hr Azithromycin 500 mg/ Sodium (Chloride) 250 mls @ 250 mls/hr IV QDAY [facility] Stop: 03/21/25 08:59 Last Admin: 03/14/25 09:18 Dose: 250 mls/hr Melatonin (Melatonin 3 Mg Tablet) 3 mg PO HS [facility] Stop: 04/12/25 20:59 Last Admin: 03/13/25 20:46 Dose: Not Given Ondansetron HCl (Ondansetron Inj 2 Mg/Ml Inj 2 Ml) 4 mg IVP Q6H PRN; Protocol PRN Reason: NAUSEA OR VOMITING Stop: 04/12/25 18:41 Pantoprazole Sodium (Pantoprazole Inj 40 Mg Vial) 40 mg IVP QDAY ASH Stop: 04/13/25 08:59 Last Admin: 03/14/25 08:21 Dose: 40 mg Pharmacy Consult (Pharmacy To Dose Warfarin) 1 each PO QDAY PRN PRN Reason: PROTOCOL Stop: 04/13/25 08:48 Trazodone HCl (Trazodone Hcl 50 Mg Tablet) 50 mg PO HS PRN PRN Reason: sleep Stop: 04/12/25 22:56 Last Admin: 03/14/25 00:49 Dose: 50 mg Discontinued Medications Cyclobenzaprine HCl (Cyclobenzaprine 5 Mg Tablet) 5 mg PO X1 ONE Stop: 03/13/25 18:57 Last Admin: 03/13/25 19:04 Dose: 5 mg Furosemide (Furosemide Inj 10 Mg/Ml 4ml Vial) 40 mg IVP X1 ONE Stop: 03/13/25 18:54 Last Admin: 03/13/25 19:24 Dose: Not Given Azithromycin 500 mg/ Sodium (Chloride) 250 mls @ 250 mls/hr IV X1 ONE Stop: 03/13/25 18:10 Last Infusion: 03/13/25 19:40 Dose: Infused Ceftriaxone Sodium/Dextrose (Rocephin/D5w 1gm Iv Premix) 1 gm in 50 mls @ 100 mls/hr IV X1 ONE Stop: 03/13/25 17:40 Last Infusion: 03/13/25 18:39 Dose: Infused Magnesium Sulfate/Dextrose (Magnesium Sulfate Ivpb) 1 gm in 100 mls @ 100 mls/hr IV X1 ONE Stop: 03/14/25 09:17 Last Admin: 03/14/25 09:17 Dose: Not Given Morphine Sulfate (Morphine Sulf Inj 10 Mg/Ml Vial) 5 mg IVP X1 ONE Stop: 03/13/25 16:39 Last Admin: 03/13/25 16:45 Dose: 5 mg Non-Formulary Medication (Cyclobenzaprine) 10 mg PO HS ASH Stop: 04/13/25 20:59 Ondansetron HCl (Ondansetron Inj 2 Mg/Ml Inj 2 Ml) 4 mg IVP X1 ONE Stop: 03/13/25 16:39 Last Admin: 03/13/25 16:46 Dose: 4 mg Warfarin Sodium (Warfarin 5 Mg Tablet) 5 mg PO QDAY@1200 ONE Stop: 03/14/25 12:01 Last Admin: 03/14/25 12:09 Dose: 5 mg Assessment & Plan Plan 40 y/o F with a complex PMH including CHF and pulm HTN (dx 2019), SLE (dx 2010), positive antiphospholipid Ab (2013), h/o Libman-Sacks endocarditis 2019, hidradenitis suppurativa, and obesity s/p gastric sleeve (2015), presenting with hemoptysis and shortness of breath. Admitted for suspected heart failure exacerbation and subtherapeutic INR. Acute hypoxemic respiratory failure Hemoptysis Extensive pneumonia bilaterally ? History of CHF SLE with positive antiphospholipid antibodies Subtherapeutic INR Chronic microcytic anemia Presenting with worsening shortness of breath and acute episode of hemoptysis. Reports having severe cough over the last few days. CTA showed no PE but extensive pneumonia bilaterally was present. She is on LASIX 40 mg at home however does not appear fluid overloaded on exam. Her last echo on file was from 2019 showed normal ejection fraction, unclear if she had developed heart failure since last hospital visit. She was seen by [facility] in 2019 after her discharge from [facility], she was suspected to have thrombus in her heart (exact location unknown), however it's very unlikely she would have a intraventricular thrombus despite positive antiphospholipid antibodies. Additionally, she denies ever having chest pain, DVT, stroke, or PE, making diagnosis of antiphospholipid syndrome very unlikely. However will need to review [facility] records to evaluate the nature of thrombus if any. Of note, echo from 2019 showed ligament sac endocarditis but no evidence of thrombus. Recommended continue LASIX for now, treat pneumonia extensively. May hold WARFARIN for now given underlying hemoptysis which is likely caused by extensive pneumonia and cough. Otherwise, once hemoptysis resolved and if records in [place] show evidence of thromboembolic disease, she will need WARFARIN titration for goal INR 2-3. Hemoglobin 8.1 but chronically low. Unclear if she has active bleed at this time. INR is subtherapeutic. Regardless, unlikely to be causing major bleed at this time. Continue management per primary team. Transfuse if Hgb less than 7. Case was discussed with attending physician, Dr. Darby. Mark Anthony Hanoun, DO PGY II This document was transcribed using voice recognition technology. Minor inaccuracies may be present.
[2025-03-14 15:06] LABS: Cocci Serology, IgM Negative (Negative)
--- NOTE | 2025-03-14 15:29 | ESPR_ITS ---
<Statement entered by Chente Sinha MD - 03/14/25 15:59> I have reviewed the note and agree with the resident's assessment & plan with exceptions as below. I have personally reviewed labs, imaging, home meds/prior records, examined the patient, formulated and discussed management plan with the IM team. Patient examined at bedside today. No acute overnight events. Patient is wondering when she can go home. Will continue with IV antibiotics and IV diuresis at this time. Cardiology consulted, appreciate recommendations. Patient will likely need to get INR in therapeutic range at this time, however patient was told that her INR needs to be 3-4 from her previous decision. Will obtain medical records from [place] at this time. Repeat hematology and chemistry in AM. Will consult hematology and oncology at this time for further management of antiphospholipid syndrome. Chente Sinha, PGY-2 Internal Medicine Documentation for date of: 03/14/25 Subjective Subjective Interval history: No acute events overnight. Patient seen and examined at bedside. Vitals and labs reviewed. Patient states her breathing is much better. Patient denies fever, headache, chest pain, shortness of breath. Exam Vital Signs Temp Pulse Resp BP Pulse Ox O2 Del Method O2 Flow Rate 98.3 F 95 20 100/66 100 Room Air 2 03/14/25 12:00 03/14/25 12:59 03/14/25 12:59 03/14/25 12:00 03/14/25 12:59 03/14/25 12:00 03/13/25 16:49 Narrative Exam General: No acute distress; A&Ox3; Skin: Extensive hidradenitis suppurativa under both armpits extending down both mid axillary lines rounding out under the breasts bilaterally and in the pubic area extending posteriorly to the gluteal area, does not appear infected; livedo reticularis present on extremities. Warm, dry, intact, no obvious rash. HENT: NCAT, EOMI, not icteric. External ears normal. No rhinorrhea. Moist mucous membranes Cardiovascular: Regular rate and rhythm, no murmur, +S1/S2. Respiratory: Lungs CTAB GI: Soft, nontender, non-distended. No guarding or rebound tenderness. Extremities: no edema, no cyanosis, no clubbing. Extremity pulses present Neuro: No focal deficits observed. Conversant, moving all extremities. No overt cerebellar signs/incoordination. Psychiatric: Cooperative, appropriate affect. Objective Labs 03/14/25 05:10 03/14/25 05:10 Labs: Laboratory Results - last 24 hr 03/13/25 03/13/25 03/14/25 15:15 17:37 05:10 WBC 10.4 7.2 RBC 4.09 3.56 L Hgb 9.1 L 8.1 L Hct 30.5 L 27.1 L MCV 75 L 76 L MCH 22.2 L 22.8 L MCHC 29.8 L 29.9 L RDW Std Deviation 48.0 H 49.5 H Plt Count 185 149 D Neut % (Auto) 86 H 70 Lymph % (Auto) 8 L 20 Menard % (Auto) 4 7 Eos % (Auto) 1 2 Baso % (Auto) 1 1 Neut # (Auto) 8.9 H 5.0 Lymph # (Auto) 0.9 L 1.4 [place]ard # (Auto) 0.4 0.5 Eos # (Auto) 0.1 0.2 Baso # (Auto) 0.1 0.1 Immature Gran # (Auto) 0.05 H 0.03 H Absolute Nucleated RBC 0.00 0.00 Immature Gran % 1 H 0 Nucleated RBC % 0 0 ESR 107 H PT 13.0 H 14.0 H INR 1.2 1.3 APTT 42.4 H 46.7 H Sodium 140 139 Potassium 3.5 4.1 D Chloride 106 103 Carbon Dioxide 24.8 26.2 Anion Gap 9 10 BUN 12 9 Creatinine 1.0 1.1 Estim Creat Clear Calc 89.1 82.1 eGFR > 60 > 60 BUN/Creatinine Ratio 12 8 L Glucose [address] Glu mg/dL Cancelled Hemoglobin A1c Cancelled Calculated Osmolality 279 277 Lactic Acid 1.3 Calcium 8.6 8.4 Corrected Calcium 9.0 9.0 Phosphorus 4.4 Magnesium 1.9 1.9 Total Bilirubin 0.4 0.3 AST 17 20 ALT 8 L < 7 L Alkaline Phosphatase 72 65 Troponin I < 0.020 B-Natriuretic Peptide 71 Total Protein 6.7 6.2 Albumin 3.5 3.2 L Globulin 3.2 3.0 Albumin/Globulin Ratio 1.1 L 1.1 L Triglycerides 85 Cholesterol 149 LDL Cholesterol, Calc 83 HDL Cholesterol 49 Cholesterol/HDL Ratio 3.0 L Lipase 27 Procalcitonin 0.12 TSH 5.62 H Free T4 1.00 HCG, Qual Negative Coccidioides IgM Ab 03/14/25 09:24 WBC RBC Hgb Hct MCV MCH MCHC RDW Std Deviation Plt Count Neut % (Auto) Lymph % (Auto) [place]ard % (Auto) Eos % (Auto) Baso % (Auto) Neut # (Auto) Lymph # (Auto) [place]ard # (Auto) Eos # (Auto) Baso # (Auto) Immature Gran # (Auto) Absolute Nucleated RBC Immature Gran % Nucleated RBC % ESR PT INR APTT Sodium Potassium Chloride Carbon Dioxide Anion Gap BUN Creatinine Estim Creat Clear Calc eGFR BUN/Creatinine Ratio Glucose Estimated Ave Glu mg/dL Hemoglobin A1c Calculated Osmolality Lactic Acid Calcium Corrected Calcium Phosphorus Magnesium Total Bilirubin AST ALT Alkaline Phosphatase Troponin I B-Natriuretic Peptide Total Protein Albumin Globulin Albumin/Globulin Ratio Triglycerides Cholesterol LDL Cholesterol, Calc HDL Cholesterol Cholesterol/HDL Ratio Lipase Procalcitonin TSH Free T4 HCG, Qual Coccidioides IgM Ab Negative Quality Measures Quality Measures VTE prophylaxis Assessment & Plan Assessment Current Active Medications: Generic Name Dose Route Start Last Admin Trade Name Freq PRN Reason Stop Dose Admin Acetaminophen 650 mg 03/13/25 18:42 Acetaminophen 325 Mg Tablet PO 04/12/25 18:41 Q6H PRN Fever >100.0 or pain 1-3 Hydrocodone Bitart/Acetaminophen 1 tab 03/13/25 18:42 03/14/25 13:57 Hydrocodone/Apap 10/325 Tab PO 03/18/25 18:41 1 tab Q4HR PRN Administration PAIN SCALE 7-10 (Severe Hydrocodone Bitart/Acetaminophen 1 tab 03/13/25 18:53 Hydrocodone/Apap 5/325 Tablet PO 03/18/25 18:52 Q4HR PRN PAIN SCALE 4-6 (Moderate Albuterol/Ipratropium 3 ml 03/13/25 19:00 03/14/25 12:58 Albuterol/Ipratropium (Duoneb) Rt Estefany 3 Ml Nebu INH 04/12/25 18:59 3 ml Q6HRRT ASH Administration Aspirin 81 mg 03/14/25 09:00 03/14/25 09:54 Aspirin Ec 81 Mg Tabec PO 04/13/25 08:59 81 mg DAILY ASH Administration Cyclobenzaprine HCl 10 mg 03/14/25 21:00 Cyclobenzaprine 5 Mg Tablet PO 04/13/25 20:59 HS ASH Furosemide 40 mg 03/14/25 06:00 03/14/25 05:27 Furosemide Inj 10 Mg/Ml 4ml Vial IVP 04/13/25 05:59 Not Given BIDD ASH Heparin Sodium (Porcine) 5,000 unit 03/13/25 19:00 03/14/25 08:22 Heparin Sod Inj 5000 Unit/Ml Vial SC 03/27/25 18:59 Not Given Q12HR ASH Ceftriaxone Sodium/Dextrose 1 gm in 50 mls @ 100 mls/hr 03/14/25 09:00 03/14/25 08:21 Rocephin/D5w 1gm Iv Premix IV 03/21/25 08:59 100 mls/hr QDAY ASH Administration Azithromycin 500 mg/ Sodium 250 mls @ 250 mls/hr 03/14/25 09:00 03/14/25 09:18 Chloride IV 03/21/25 08:59 250 mls/hr QDAY ASH Administration Melatonin 3 mg 03/13/25 21:00 03/13/25 20:46 Melatonin 3 Mg Tablet PO 04/12/25 20:59 Not Given HS ASH Ondansetron HCl 4 mg 03/13/25 18:42 Ondansetron Inj 2 Mg/Ml Inj 2 Ml IVP 04/12/25 18:41 Q6H PRN NAUSEA OR VOMITING Protocol Pantoprazole Sodium 40 mg 03/14/25 09:00 03/14/25 08:21 Pantoprazole Inj 40 Mg Vial IVP 04/13/25 08:59 40 mg QDAY ASH Administration Pharmacy Consult 1 each 03/14/25 08:49 Pharmacy To Dose Warfarin PO 04/13/25 08:48 QDAY PRN PROTOCOL Trazodone HCl 50 mg 03/13/25 22:57 03/14/25 00:49 Trazodone Hcl 50 Mg Tablet PO 04/12/25 22:56 50 mg HS PRN Administration sleep Plan Patient is a 40-year-old female with past medical history of CHF and pulmonary hypertension diagnosed in 2019, SLE diagnosed in 2010, antiphospholipid antibody syndrome diagnosed in 2013, endocarditis, hidradenitis suppurativa, obesity presented to the emergency department with shortness of breath. Patient was admitted for evaluation and management of respiratory failure. #SLE #hx of antiphospholipid antibody body syndrome #hx of endocarditis Patient states she takes warfarin 1 mg with goal INR of 3-4 for history of antiphospholipid antibody syndrome diagnosed in 03/14: INR still low at 1.3 -Started patient on Warfarin 5 mg po qd -Heme/Onc Dr. Soria consulted, will follow up recommendations -Requested medical records from [facility]. -Will order and continue to monitor coags -Echo ordered #Acute Hypoxic Respiratory Failure #CHF Possibly due to CHF exacerbation after patient endorsed not taking her lasix for 2 days. Possibly due to pneumonia with WBC 10.4, elevated HR 110s, with imaging suggestive of it. Patient breathing well on 2L NC at 97% O2. Admission: Pro-emelia 0.12, BNP 71 CXR: significant left lung pneumonia; Chest CTA was negative for aneurysm, dissection, pulmonary artery emboli; extensive bilateral pneumonia suspicious for mild associated or heart failure Patient given rocephin 1 gm in ED 03/14: Patient states her breathing is much better -Patient will start azithromycin 500 mg and Rocephin 1 gm in the morning -Echo ordered -Patient given DuoNeb inhalers every 6 hours as needed -Will start Lasix 40 mg twice daily tomorrow morning -Ordered cbc, cmp, TSH, lipid panel, A1c will follow-up -Blood cultures drawn, follow up -strict I/O's -daily weight #muscle spasms Patient takes cyclobenzaprine 10 mg po hs at home. -started home medication. #anemia Hemoglobin on admission is 9.1 with MCV of 75 May be due to iron deficiency anemia, surgical history of gastric sleeve may also be contributing regarding absorption Patient states she takes 325 mg iron every night. Patient stated she was coughing up blood this morning Patient states has not been coughing up blood anymore Denies noticing blood in any bowel movements. ? Will continue to monitor for signs and symptoms of bleeding ? Will continue to monitor hemoglobin #hidradenitis suppurativa Extensive hidradenitis suppurativa under both armpits extending down both mid axillary lines rounding out under the breasts bilaterally and in the pubic area extending posteriorly to the gluteal area, Patient has it covered with gauze; treats it symptomatically at home; does not appear infected. Patient states she has an appointment outpatient to get it further evaluated. -will continue to monitor for infection. Hospital Management: Disposition: tele Diet: Cardiac GI Prophylaxis: none Bowel Prophylaxis:Protonix 40 mg q day DVT Prophylaxis: heparin CODE STATUS: Full Code Patient plan of care was discussed with the attending physician, Dr. Gastelum & senior resident Dr. Bharath Martinez MD PGY-1
[2025-03-14] MEDS: HEPARIN SOD INJ 5000 UNIT/ML VIAL SC (21:20)
[2025-03-15] VITALS (18 sets, daily range): BP systolic 86–130; BP diastolic 55–91; PULSE 90–113; RESP 13–98; TEMP 35.9–36.8; O2SAT 92–100; BMI 45.3
[2025-03-15] MEDS: ALBUTEROL/IPRATROPIUM (Duoneb) RT SOL 3 ML NEBU INH ×3 (00:50→19:23)
[2025-03-15 06:08] LABS: Basophils # (Auto) 0.0 Thou/mm3 (0.0-0.2); Basophils % (Auto) 1 % (0-2.5); Eosinophils # (Auto) 0.2 Thou/mm3 (0.0-0.5); Eosinophils % (Auto) 3 % (0-10); Hematocrit 22.4 % (36.0-46.0); Immature Granulocytes Auto 0.02 Thou/mm3 (0.00-0.00); Lymphocytes # (Auto) 1.4 Thou/mm3 (1.0-4.8); Lymphocytes % (Auto) 22 % (10-50); Mean Corpuscular HGB Conc 29.5 g/dl (31.0-37.0); Mean Corpuscular Hemoglobin 22.4 pg (25.0-35.0); Mean Corpuscular Volume 76 fL (80-100); Monocytes # (Auto) 0.5 Thou/mm3 (0.0-0.8); Monocytes % (Auto) 8 % (0-12); Neutrophils # (Auto) 4.2 Thou/mm3 (1.8-7.7); Neutrophils % (Auto) 67 % (37-80); Nucleated Red Blood Cell # 0.00 Thou/mm3 (0.00-0.00); Nucleated Red Blood Cell % 0 /100 WBC (0); Platelet Count 116 Thou/mm3 (140-440); RDW Standard Deviation 49.6 fL (36.4-46.3); Red Blood Count 2.95 Miln/mm3 (4.00-5.20); White Blood Count 6.3 Thou/mm3 (3.6-11.0)
[2025-03-15 06:17] LABS: Hemoglobin 6.6 g/dL (12.0-16.0)
[2025-03-15 06:25] LABS: INR 1.0 (0.9-1.3); Prothrombin Time 10.9 Seconds (9.0-12.2)
[2025-03-15 06:59] LABS: Alanine Aminotransferase < 7 U/L (10-49); Albumin, Serum 3.1 gm/dL (3.5-5.0); Albumin/Globulin Ratio 1.1 (1.2-2.2); Alkaline Phosphatase 60 U/L (46-116); Anion Gap 11 (7-16); Aspartate Amino Transferase 25 U/L (0-34); BUN/Creatinine Ratio 9 Ratio (12-20); Bilirubin,Total 0.2 mg/dL (0.3-1.2); Blood Urea Nitrogen 8 mg/dL (9-23); Calcium 8.3 mg/dL (8.3-10.6); Calcium (Corrected) 9.0 mg/dL (8.5-10.1); Carbon Dioxide 23.1 mMol/L (20.0-31.0); Chloride 105 mMol/L (98-107); Creatinine (Component) 0.9 mg/dL (0.6-1.3); Estimated Creatinine Clearance 100.1 mL/min (>60); Globulin 2.8 gm/dL (2.3-3.5); Glucose 83 mg/dL (74-106); Magnesium 1.6 mg/dL (1.6-2.6); Osmolality,Calculated 274 (275-295); Phosphorous 4.1 mg/dL (2.4-5.1); Potassium 4.0 mMol/L (3.4-5.1); Sodium 139 mMol/L (136-145); Total Protein 5.9 gm/dL (5.7-8.2); eGFR > 60 See Note
--- NOTE | 2025-03-15 08:16 | PC.NURSE ---
Pt uncomfortable and wants to go home. 's aware. Explained to patient that She has low hemoglobin and need's a blood transfusion at this time. Waiting on Medical records from [place].
[2025-03-15] MEDS: cefTRIAXone/D5w 1gm IV premix 1 GM/50 ML BAG IV (08:21)
[2025-03-15] MEDS: ASPIRIN EC 81 MG TABEC PO (08:21)
[2025-03-15] MEDS: HEPARIN SOD INJ 5000 UNIT/ML VIAL SC (08:22)
[2025-03-15] MEDS: AZITHROMYCIN INJ 500 MG in SODIUM CHLORIDE 0.9% 250 ML 250 ML 250 MG IV (10:00)
--- NOTE | 2025-03-15 10:32 | ECHO_ITS ---
Transthoracic Echo Report Ht (in): 63 Wt (lb): 251 Exam Location: Echo Lab Status: Inpatient [employer] [employer] Director: Caryn Zuñiga Indications: Procedure Performed: BP: 104 / 68 HR: 108 MEASUREMENTS (Male / Female) Normal Values 2D ECHO LV Diastolic Diameter PLAX 5.0 cm 4.2 - 5.9 / 3.9 - 5.3 cm LV Systolic Diameter PLAX 3.1 cm IVS Diastolic Thickness 1.2 cm 0.6 - 1.0 / 0.6 - 0.9 cm LVPW Diastolic Thickness 1.3 cm 0.6 - 1.0 / 0.6 - 0.9 cm LV Relative Wall Thickness 0.5 LVOT Diameter 1.9 cm LA Volume Index 50.7 cm?/m? 16 - 28 cm?/m? Ascending Aorta Diameter 3.0 cm M-MODE AV Cusp Separation MM 1.8 cm DOPPLER AV Peak Velocity 148.0 cm/s AV Peak Gradient 8.8 mmHg AV Mean Gradient 4.0 mmHg AV Velocity Time Integral 23.5 cm LVOT Peak Velocity 133.0 cm/s LVOT Peak Gradient 7.1 mmHg LVOT Velocity Time Integral 24.0 cm LVOT Cardiac Index 3174.1 cm?/min?m? AV Area Cont Eq vti 2.9 cm? AV Area Cont Eq pk 2.5 cm? MV Peak Velocity 250.0 cm/s MV Peak Gradient 25.0 mmHg MV Mean Velocity 117.0 cm/s MV Mean Gradient 8.0 mmHg MV Area PHT 7.1 cm? Mitral E Point Velocity 130.0 cm/s Mitral A Point Velocity 156.0 cm/s Mitral E to A Ratio 0.8 LV E' Lateral Velocity 7.5 cm/s Mitral E to LV E' Lateral Ratio 17.3 LV E' Septal Velocity 7.0 cm/s Mitral E to LV E' Septal Ratio 18.7 TR Peak Velocity 346.3 cm/s TR Peak Gradient 48.0 mmHg PV Peak Velocity 107.0 cm/s PV Peak Gradient 4.6 mmHg FINDINGS Left Ventricle Mild LVH. There is grade I diastolic dysfunction of the left ventricle (impaired relaxation pattern). The ejection fraction is visually estimated at 60-65 %. Right Ventricle The right ventricular size is mildy increased. The estimated right ventricular systolic pressure, 65 mmHg. Left Atrium The left atrial cavity size is severely increased. Right Atrium The right atrial cavity size is mildly increased. no thrombus formation present. RAP 8 Atrial Septum The interatrial septum appears normal with no evidence of a shunt. Aorta The aorta is normal by two-dimensional, color flow and Doppler interrogation. Mitral Valve Mild mitral stenosis with thickened leaflets and Libman Sacks vegetation with calcification Mean mitral gradient of 8 mm Hg, Moderate 2+ mitral regurgitation Aortic Valve The aortic valve is trileaflet and mild stenosis. Trace to mild aortic valve regurgitation. Tricuspid Valve The tricuspid valve is normal by two-dimensional, color flow and Doppler interrogation. There is moderate tricuspid regurgitation. Pulmonic Valve The pulmonic valve is not well visualized. There is no significant pulmonic valve regurgitation. Vessels The pulmonary artery appears normal. The inferior vena cava pulmonary and hepatic veins appear normal. Pericardium The pericardium is normal by two-dimensional imaging. There is no significant pericardial effusion. Other Findings Severe PHTN CONCLUSIONS Indication :CHF Normal left ventricular size with mild LVH EF approximately 60-65% Mitral valve leaflet shows echogenic structure measuring 1.4 cm. Unchanged slightly better 2019 Moderate mitral stenosis with thickened leaflets and Libman Sacks vegetation with calcification Mean mitral gradient of 8 mm Hg, Moderate 2+ mitral regurgitation FIndings consistant with SLE related Libman Sacks endoccarditis No evidence of thrombi Moderate tricuspid regurgitation with evidence of pulmonary hypertension est PAsP 65 mm hG Most Likely Group I Bhakti Lema (Electronically Signed) Final Date: 17 March 2025 16:36
[2025-03-15 11:48] LABS: LDH (Lactate Dehydrogenase) 312 U/L (120-246); Path Review Blood Smear Sent to Pathologist
[2025-03-15 11:52] LABS: Ferritin 139 ng/mL (7.3-270.7); Iron 16 mcg/dL (50-170); Percent Iron Saturation 6 % (20-55); Total Iron Binding Capacity 261 mcg/dL (250-425); Unsaturated Iron Binding 245 (225-295)
--- NOTE | 2025-03-15 14:25 | PC.SS ---
Rounding: Blood transfusion, pending cardio and hematology reccs
--- NOTE | 2025-03-15 15:31 | ESPR_ITS ---
<Statement entered by Chente Sinha MD - 03/15/25 15:58> I have reviewed the note and agree with the resident's assessment & plan with exceptions as below. I have personally reviewed labs, imaging, home meds/prior records, examined the patient, formulated and discussed management plan with the IM team. Patient examined at bedside today. Patient's hemoglobin today 6.7, will initiate 1 PRBC. Will follow-up with posttransfusion H&H. Hematology consulted for further workup of antiphospholipid syndrome and possible hemolysis. Cardiology on consult, appreciate recommendations. Will follow-up with echocardiogram tomorrow. May reach out to patient's medical device engineer in [place], . Repeat hematology and chemistry in AM. Chente Sinha, PGY-2 Internal Medicine Documentation for date of: 03/15/25 Subjective Subjective Interval history: Patient seen and examined at bedside. Vitals and labs reviewed. On morning labs, patient was noted to have hgb 6.6, patient denies any coughing up of blood or bleeding of any sort. Patient states that she feels a little congested. Patient states her breathing continues to be good better. Patient denies fever, headache, chest pain, shortness of breath. Exam Vital Signs Temp Pulse Resp BP Pulse Ox O2 Del Method O2 Flow Rate 97.0 F 104 H 18 130/81 96 Room Air 2 03/15/25 13:48 03/15/25 13:48 03/15/25 13:48 03/15/25 13:48 03/15/25 13:48 03/15/25 12:00 03/13/25 16:49 Narrative Exam General: No acute distress; A&Ox3; Skin: Extensive hidradenitis suppurativa under both armpits extending down both mid axillary lines rounding out under the breasts bilaterally and in the pubic area extending posteriorly to the gluteal area, does not appear infected; livedo reticularis present on extremities. Warm, dry, intact, no obvious rash. HENT: NCAT, EOMI, not icteric. External ears normal. No rhinorrhea. Tooth infection. Moist mucous membranes Cardiovascular: Regular rate and rhythm, no murmur, +S1/S2. Respiratory: Lungs CTAB GI: Soft, nontender, non-distended. No guarding or rebound tenderness. Extremities: no edema, no cyanosis, no clubbing. Extremity pulses present Neuro: No focal deficits observed. Conversant, moving all extremities. No overt cerebellar signs/incoordination. Psychiatric: Cooperative, appropriate affect. Objective Labs 03/15/25 05:05 03/15/25 05:05 Labs: Laboratory Results - last 24 hr 03/15/25 03/15/25 03/15/25 05:05 07:50 07:58 WBC 6.3 RBC 2.95 L Hgb 6.6 L* Hct 22.4 L MCV 76 L MCH 22.4 L MCHC 29.5 L RDW Std Deviation 49.6 H Plt Count 116 L D Neut % (Auto) 67 Lymph % (Auto) 22 [place] % (Auto) 8 Eos % (Auto) 3 Baso % (Auto) 1 Neut # (Auto) 4.2 Lymph # (Auto) 1.4 [place] # (Auto) 0.5 Eos # (Auto) 0.2 Baso # (Auto) 0.0 Immature Gran # (Auto) 0.02 H Absolute Nucleated RBC 0.00 Immature Gran % 0 Nucleated RBC % 0 Smear Path Review Sent to Pathologist Cancelled PT 10.9 D INR 1.0 Sodium 139 Potassium 4.0 Chloride 105 Carbon Dioxide 23.1 Anion Gap 11 BUN 8 L Creatinine 0.9 Estim Creat Clear Calc 100.1 eGFR > 60 BUN/Creatinine Ratio 9 L Glucose 83 Calculated Osmolality 274 L Calcium 8.3 Corrected Calcium 9.0 Phosphorus 4.1 Magnesium 1.6 Iron 16 L TIBC 261 Iron Saturation 6 L Unsat Iron Binding 245 Ferritin 139 Total Bilirubin 0.2 L AST 25 ALT < 7 L Alkaline Phosphatase 60 Lactate Dehydrogenase 312 H Total Protein 5.9 Albumin 3.1 L Globulin 2.8 Albumin/Globulin Ratio 1.1 L Blood Type B Positive Antibody Screen NEGATIVE Crossmatch See Detail Blood Bank Wristband ID Yes Quality Measures Quality Measures VTE prophylaxis Assessment & Plan Assessment Current Active Medications: Generic Name Dose Route Start Last Admin Trade Name Freq PRN Reason Stop Dose Admin Acetaminophen 650 mg 03/13/25 18:42 Acetaminophen 325 Mg Tablet PO 04/12/25 18:41 Q6H PRN Fever >100.0 or pain 1-3 Hydrocodone Bitart/Acetaminophen 1 tab 03/14/25 18:00 03/15/25 08:21 Hydrocodone/Apap 10/325 Tab PO 03/19/25 17:59 1 tab Q6HR PRN Administration PAIN SCALE 7-10 (Severe Albuterol/Ipratropium 3 ml 03/13/25 19:00 03/15/25 12:21 Albuterol/Ipratropium (Duoneb) Rt Estefany 3 Ml Nebu INH 04/12/25 18:59 3 ml Q6HRRT ASH Administration Aspirin 81 mg 03/14/25 09:00 03/15/25 08:21 Aspirin Ec 81 Mg Tabec PO 04/13/25 08:59 81 mg DAILY ASH Administration Cyclobenzaprine HCl 5 mg 03/14/25 18:00 03/15/25 08:21 Cyclobenzaprine 5 Mg Tablet PO 04/13/25 17:59 5 mg Q6H PRN Administration MUSCLE SPASMS Furosemide 40 mg 03/14/25 06:00 03/15/25 06:14 Furosemide Inj 10 Mg/Ml 4ml Vial IVP 04/13/25 05:59 Not Given BIDD ASH Heparin Sodium (Porcine) 5,000 unit 03/13/25 19:00 03/15/25 08:22 Heparin Sod Inj 5000 Unit/Ml Vial SC 03/27/25 18:59 5,000 unit Q12HR ASH Administration Ceftriaxone Sodium/Dextrose 1 gm in 50 mls @ 100 mls/hr 03/14/25 09:00 03/15/25 08:21 Rocephin/D5w 1gm Iv Premix IV 03/21/25 08:59 100 mls/hr QDAY ASH Administration Azithromycin 500 mg/ Sodium 250 mls @ 250 mls/hr 03/14/25 09:00 03/15/25 10:00 Chloride IV 03/21/25 08:59 250 mls/hr QDAY ASH Administration Melatonin 3 mg 03/13/25 21:00 03/14/25 21:25 Melatonin 3 Mg Tablet PO 04/12/25 20:59 Not Given HS ASH Ondansetron HCl 4 mg 03/13/25 18:42 Ondansetron Inj 2 Mg/Ml Inj 2 Ml IVP 04/12/25 18:41 Q6H PRN NAUSEA OR VOMITING Protocol Pantoprazole Sodium 40 mg 03/14/25 09:00 03/15/25 08:21 Pantoprazole Inj 40 Mg Vial IVP 04/13/25 08:59 40 mg QDAY ASH Administration Pharmacy Consult 1 each 03/14/25 08:49 Pharmacy To Dose Warfarin PO 04/13/25 08:48 QDAY PRN PROTOCOL Trazodone HCl 50 mg 03/13/25 22:57 03/14/25 00:49 Trazodone Hcl 50 Mg Tablet PO 04/12/25 22:56 50 mg HS PRN Administration sleep Plan Patient is a 40-year-old female with past medical history of CHF and pulmonary hypertension diagnosed in 2019, SLE diagnosed in 2010, antiphospholipid antibody syndrome diagnosed in 2013, endocarditis, hidradenitis suppurativa, obesity presented to the emergency department with shortness of breath. Patient was admitted for evaluation and management of respiratory failure (improving). #SLE #hx of antiphospholipid antibody body syndrome #hx of libman-sacks endocarditis Patient states she takes warfarin 1 mg with goal INR of 3-4 for history of antiphospholipid antibody syndrome diagnosed in 03/14: INR still low at 1.3 03/15: INR 1.0 -Warfarin stopped given low hgb 6.6, given 1 unit pRBC. -Heme/Onc Dr. Soria consulted, will follow up recommendations -Requested medical records from [place]. -Will order and continue to monitor coags -Echo ordered #anemia Hemoglobin on admission is 9.1 with MCV of 75. May be due to iron deficiency anemia, surgical history of gastric sleeve may also be contributing regarding absorption. Patient states she takes 325 mg iron every night. Patient stated she was coughing up blood on morning of admission. Patient states has not been coughing up blood anymore. Denies noticing blood in any bowel movements. Hgb 03/15: 6.6 - Warfarin stopped given low hgb 6.6, given 1 unit pRBC. - Iron panel ordered, will f/u. ? Will continue to monitor for signs and symptoms of bleeding ? Will continue to monitor hemoglobin #Acute Hypoxic Respiratory Failure #CHF Possibly due to CHF exacerbation after patient endorsed not taking her lasix for 2 days. Possibly due to pneumonia with WBC 10.4, elevated HR 110s, with imaging suggestive of it. Patient breathing well on 2L NC at 97% O2. Admission: Pro-emelia 0.12, BNP 71 CXR: significant left lung pneumonia; Chest CTA was negative for aneurysm, dissection, pulmonary artery emboli; extensive bilateral pneumonia suspicious for mild associated or heart failure Patient given rocephin 1 gm in ED 03/14: Patient states her breathing is much better -Patient will start azithromycin 500 mg and Rocephin 1 gm in the morning -Echo ordered -Patient given DuoNeb inhalers every 6 hours as needed -Will start Lasix 40 mg twice daily tomorrow morning -Ordered cbc, cmp, TSH, lipid panel, A1c will follow-up -Blood cultures drawn, follow up -strict I/O's -daily weight #muscle spasms Patient takes cyclobenzaprine 10 mg po hs at home. -started home medication. #hidradenitis suppurativa Extensive hidradenitis suppurativa under both armpits extending down both mid axillary lines rounding out under the breasts bilaterally and in the pubic area extending posteriorly to the gluteal area, Patient has it covered with gauze; treats it symptomatically at home; does not appear infected. Patient states she has an appointment outpatient to get it further evaluated. -will continue to monitor for infection. Hospital Management: Disposition: tele Diet: Cardiac GI Prophylaxis: n/a Bowel Prophylaxis:Protonix 40 mg q day DVT Prophylaxis: heparin CODE STATUS: Full Code Patient plan of care was discussed with the attending physician, Dr. Gastelum & senior resident Dr. Bharath Martinez MD PGY-1 Attending Provider Attestation/Addendum I have discussed and was present for the essential components of the history, physical examination, diagnosis, and treatment plan with the resident. I agree with the patient's care as documented by the resident and amended herein by me. Tello Gastelum DO. Although this document has been carefully reviewed, there may still be some phonetic and other typographical errors. These errors are purely grammatical due to imperfections in the software program and should not be construed in any way to compromise the substance of the patient's medical care during this visit.
--- NOTE | 2025-03-15 17:18 | ESCONSULT_ITS ---
RE: HARISH SNYDER : 1985 DATE OF CONSULTATION: 03/15/2025 REFERRING PHYSICIAN: Dr. Nitesh Martinez. REASON FOR CONSULTATION: Systemic lupus erythematosus. HISTORY OF PRESENT ILLNESS: Mrs. Snyder is a 40-year-old female, who mentioned to me that she had a lupus for 10 years and she was taking Coumadin, but she was not monitoring and she ran out of the strips as she was not monitoring her INR. She mentioned to me that she was taking 1 mg of Coumadin and she was not following with care coordinator. It is noted from the record that patient took a break from her medication and also seeing the doctors. She did mention that she was coughing up some blood. It states that patient does not have a history of antiphospholipid syndrome, pulmonary hypertension, CHF, endocarditis. She mentioned that she was not taken medication lately and she mentioned to me that she has appointment to see her care coordinator. PAST MEDICAL HISTORY: Because of this SLE, this consultation is obtained. She also mentioned to me that she has multiple miscarriages. PAST SURGICAL HISTORY: Cholecystectomy, gastric sleeve, skin graft as she has a history of hidradenitis suppurativa in her both axilla and groin area. She had a cholecystectomy in 2003. SOCIAL HISTORY: Uses vape pen. Occasional alcohol. 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 MEDICATIONS: As per record. ALLERGIES: TRAMADOL. PHYSICAL EXAMINATION: GENERAL: She is alert. VITAL SIGNS: She is afebrile. Vitals stable. HEENT: Pupil are reactive to light and accommodation. Sclerae nonicteric. NECK: Supple. There is no JVD or palpable mass. LUNGS: There is good air entry bilaterally. They are clear to auscultation. HEART: Regular. ABDOMEN: Soft. Bowels are present. EXTREMITIES: 3+ pedal pulses. There is no cyanosis or edema. CENTRAL NERVOUS SYSTEM: The patient is able to move her extremities and follow simple commands. PLAN AND RECOMMENDATION: Her blood work today has WBC count of 6.3, hemoglobin 6.6, hematocrit of 22.4, MCV of 76, MCH of 22.4, and platelet count of 116,000. She has anemia and thrombocytopenia and that has to be worked up especially in regard to anemia and it looked like that she could have iron deficiency and that has to be checked. Sodium is 139, potassium is 4, chloride is 105, BUN 8, creatinine 0.9, and GFR more than 60. CT of the chest done on 03/13/2025 showed mild splenomegaly, extensive bilateral pneumonia, suspicious for mild associated heart failure. No other pathology was noted. Agree with your present plan of treatment. I have taken the liberty of ordering some blood tests. I will follow this patient with you and write order according to the clinical situation. The patient has a history of SLE and multiple miscarriages and she has been seen by Dr. Torre, the care coordinator in [place]. I thank you, Dr. Nitesh Maritnez for letting me participate in the care of this interesting patient. If you have any questions, please feel free to contact me. DT: 13:12:16 TT: 17:01:00 Ref: [id number] - TID: [id number] MTDD
--- NOTE | 2025-03-15 17:31 | ESPR_ITS ---
<Statement entered by Alberto Darby MD - 03/15/25 19:02> I personally evaluated examined this patient in telemetry with resident physician PGY 1 Dr. Alas patient is doing better however she has pneumonia being treated for bilateral pneumonia hemoptysis resolved did not get the records from the [facility] we will get the records and review again tomorrow if the patient did not have any cardiac thrombi I do not see a clear indication for lifelong anticoagulation with warfarin. Patient did have antiphospholipid antibody positive however not clear whether patient has antiphospholipid syndrome which includes symptomatic recurrent thromboembolism either venous thromboembolism or arterial thrombosis. 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 Because of iron deficiency anemia chronic blood loss probably not regulated to be on warfarin unless there is a clear documented episodes of thromboembolism venous thrombosis or arterial embolism. Because of antiphospholipid antibody only warfarin should be used for anticoagulation but presently we will hold off on that for now. Eval the patient with resident physician Dr. Alas will continue to monitor the patient closely till discharge Documentation for date of: 03/15/25 Subjective Subjective Interval history: No significant overnight events. Patient is slightly hypotensive and tachycardic, Hb 6.6, will receive transfusion today per primary team. From a cardiac standpoint the patient has low suspicion for cardiac thrombi, however an echo will be ordered to confirm. Exam Vital Signs Temp Pulse Resp BP Pulse Ox O2 Del Method O2 Flow Rate 98.3 F 104 H 20 93/68 93 L Room Air 2 03/15/25 16:08 03/15/25 16:08 03/15/25 16:08 03/15/25 16:08 03/15/25 16:03/15/25 16:00 03/13/25 16:49 Narrative Exam General: Obese lady. Awake and in no acute distress. Conversational and non- toxic appearing. Neurologic: GCS 15. Alert and oriented x3, no gross neurological deficit, and patient able to move all 4 extremities. HEENT: Normocephalic, atraumatic, mucous membranes moist. Pupils reactive to light. Heart: Regular rate and rhythm, normal S1 and S2, no murmurs. Lungs: Clear to auscultation bilaterally with no wheezing or crackles. Abdomen: Soft, nondistended, nontender, positive bowel sounds. No guarding or rebound tenderness. Extremities: No edema. 2+ radial and dorsalis pedis pulses bilaterally. Skin: Warm. Dry. No rash or ecchymoses. Objective Labs 03/15/25 05:05 03/15/25 05:05 Labs: Laboratory Results - last 24 hr 03/15/25 03/15/25 03/15/25 05:05 07:50 07:58 WBC 6.3 RBC 2.95 L Hgb 6.6 L* Hct 22.4 L MCV 76 L MCH 22.4 L MCHC 29.5 L RDW Std Deviation 49.6 H Plt Count 116 L D Neut % (Auto) 67 Lymph % (Auto) 22 [place] % (Auto) 8 Eos % (Auto) 3 Baso % (Auto) 1 Neut # (Auto) 4.2 Lymph # (Auto) 1.4 [place] # (Auto) 0.5 Eos # (Auto) 0.2 Baso # (Auto) 0.0 Immature Gran # (Auto) 0.02 H Absolute Nucleated RBC 0.00 Immature Gran % 0 Nucleated RBC % 0 Smear Path Review Sent to Pathologist Cancelled PT 10.9 D INR 1.0 Sodium 139 Potassium 4.0 Chloride 105 Carbon Dioxide 23.1 Anion Gap 11 BUN 8 L Creatinine 0.9 Estim Creat Clear Calc 100.1 eGFR > 60 BUN/Creatinine Ratio 9 L Glucose 83 Calculated Osmolality 274 L Calcium 8.3 Corrected Calcium 9.0 Phosphorus 4.1 Magnesium 1.6 Iron 16 L TIBC 261 Iron Saturation 6 L Unsat Iron Binding 245 Ferritin 139 Total Bilirubin 0.2 L AST 25 ALT < 7 L Alkaline Phosphatase 60 Lactate Dehydrogenase 312 H Total Protein 5.9 Albumin 3.1 L Globulin 2.8 Albumin/Globulin Ratio 1.1 L Blood Type B Positive Antibody Screen NEGATIVE Crossmatch See Detail Blood Bank Wristband ID Yes Quality Measures Quality Measures VTE prophylaxis Assessment & Plan Assessment Current Active Medications: Generic Name Dose Route Start Last Admin Trade Name Freq PRN Reason Stop Dose Admin Acetaminophen 650 mg 03/13/25 18:42 Acetaminophen 325 Mg Tablet PO 04/12/25 18:41 Q6H PRN Fever >100.0 or pain 1-3 Hydrocodone Bitart/Acetaminophen 1 tab 03/14/25 18:00 03/15/25 17:23 Hydrocodone/Apap 10/325 Tab PO 03/19/25 17:59 1 tab Q6HR PRN Administration PAIN SCALE 7-10 (Severe Albuterol/Ipratropium 3 ml 03/13/25 19:00 03/15/25 12:21 Albuterol/Ipratropium (Duoneb) Rt Estefany 3 Ml Nebu INH 04/12/25 18:59 3 ml Q6HRRT ASH Administration Aspirin 81 mg 03/14/25 09:00 03/15/25 08:21 Aspirin Ec 81 Mg Tabec PO 04/13/25 08:59 81 mg DAILY ASH Administration Cyclobenzaprine HCl 5 mg 03/14/25 18:00 03/15/25 17:24 Cyclobenzaprine 5 Mg Tablet PO 04/13/25 17:59 5 mg Q6H PRN Administration MUSCLE SPASMS Furosemide 40 mg 03/14/25 06:00 03/15/25 17:23 Furosemide Inj 10 Mg/Ml 4ml Vial IVP 04/13/25 05:59 Not Given BIDD ASH Heparin Sodium (Porcine) 5,000 unit 03/13/25 19:00 03/15/25 08:22 Heparin Sod Inj 5000 Unit/Ml Vial SC 03/27/25 18:59 5,000 unit Q12HR ASH Administration Ceftriaxone Sodium/Dextrose 1 gm in 50 mls @ 100 mls/hr 03/14/25 09:00 03/15/25 08:21 Rocephin/D5w 1gm Iv Premix IV 03/21/25 08:59 100 mls/hr QDAY ASH Administration Azithromycin 500 mg/ Sodium 250 mls @ 250 mls/hr 03/14/25 09:00 03/15/25 10:00 Chloride IV 03/21/25 08:59 250 mls/hr QDAY ASH Administration Melatonin 3 mg 03/13/25 21:00 03/14/25 21:25 Melatonin 3 Mg Tablet PO 04/12/25 20:59 Not Given HS ASH Ondansetron HCl 4 mg 03/13/25 18:42 Ondansetron Inj 2 Mg/Ml Inj 2 Ml IVP 04/12/25 18:41 Q6H PRN NAUSEA OR VOMITING Protocol Pantoprazole Sodium 40 mg 03/14/25 09:00 03/15/25 08:21 Pantoprazole Inj 40 Mg Vial IVP 04/13/25 08:59 40 mg QDAY ASH Administration Pharmacy Consult 1 each 03/14/25 08:49 Pharmacy To Dose Warfarin PO 04/13/25 08:48 QDAY PRN PROTOCOL Trazodone HCl 50 mg 03/13/25 22:57 03/14/25 00:49 Trazodone Hcl 50 Mg Tablet PO 04/12/25 22:56 50 mg HS PRN Administration sleep Plan 40 y/o F with a complex PMH including CHF and pulm HTN (dx 2019), SLE (dx 2010), positive antiphospholipid Ab (2013), h/o Libman-Sacks endocarditis 2019, hidradenitis suppurativa, and obesity s/p gastric sleeve (2015), presenting with hemoptysis and shortness of breath. Admitted for suspected heart failure exacerbation and subtherapeutic INR. #Acute hypoxemic respiratory failure #Hemoptysis #Extensive pneumonia bilaterally ? History of CHF #SLE with positive antiphospholipid antibodies #Subtherapeutic INR #Chronic microcytic anemia - CTA showed no PE but extensive pneumonia bilaterally was present - Her last echo on file was from 2019 showed normal ejection fraction, unclear if she had developed heart failure since last hospital visit. - he was seen by [facility] in [address] [facility], she was suspected to have thrombus in her heart (exact location unknown), however it's very unlikely she would have a intraventricular thrombus despite positive antiphospholipid antibodies. Additionally, she denies ever having chest pain, DVT, stroke, or PE, making diagnosis of antiphospholipid syndrome very unlikely. However will need to review [facility] records to evaluate the nature of thrombus if any. Of note, echo from 2019 showed ligament sac endocarditis but no evidence of thrombus. Plan: - Echo ordered - Recommended continue LASIX for now, treat pneumonia extensively. May hold WARFARIN for now given underlying hemoptysis which is likely caused by extensive pneumonia and cough. Otherwise, once hemoptysis resolved and if records in [facility] show evidence of thromboembolic disease, she will need WARFARIN titration for goal INR 2-3. - Hemoglobin 8.1 but chronically low. Unclear if she has active bleed at this time. INR is subtherapeutic. Regardless, unlikely to be causing major bleed at this time. Continue management per primary team. Transfuse if Hgb less than 7. #Anemia #Muscle spasms #Hidradenitis suppurativa - Managed per primary team Patient was seen and discussed with my attending physician Dr. Darby. Kennedy Alas DO PGY-1.
[2025-03-15 18:12] LABS: Hematocrit 31.0 % (36.0-46.0); Hemoglobin 9.4 g/dL (12.0-16.0)
[2025-03-15 22:32] LABS: Ferritin 131 ng/mL (7.3-270.7); Iron 28 mcg/dL (50-170); Total Iron Binding Capacity 263 mcg/dL (250-425)
[2025-03-16] VITALS (11 sets, daily range): BP systolic 98–131; BP diastolic 65–96; PULSE 94–113; RESP 12–99; TEMP 36.1–36.7; O2SAT 95–100; BMI 45.5
[2025-03-16] MEDS: ALBUTEROL/IPRATROPIUM (Duoneb) RT SOL 3 ML NEBU INH ×4 (00:58→19:19)
[2025-03-16 07:05] LABS: Basophils # (Auto) 0.1 Thou/mm3 (0.0-0.2); Basophils % (Auto) 1 % (0-2.5); Eosinophils # (Auto) 0.2 Thou/mm3 (0.0-0.5); Eosinophils % (Auto) 4 % (0-10); Hematocrit 28.3 % (36.0-46.0); Immature Granulocytes Auto 0.03 Thou/mm3 (0.00-0.00); Lymphocytes # (Auto) 1.2 Thou/mm3 (1.0-4.8); Lymphocytes % (Auto) 20 % (10-50); Mean Corpuscular HGB Conc 30.4 g/dl (31.0-37.0); Mean Corpuscular Hemoglobin 23.4 pg (25.0-35.0); Mean Corpuscular Volume 77 fL (80-100); Monocytes # (Auto) 0.4 Thou/mm3 (0.0-0.8); Monocytes % (Auto) 6 % (0-12); Neutrophils # (Auto) 4.2 Thou/mm3 (1.8-7.7); Neutrophils % (Auto) 69 % (37-80); Nucleated Red Blood Cell # 0.00 Thou/mm3 (0.00-0.00); Nucleated Red Blood Cell % 0 /100 WBC (0); Platelet Count 142 Thou/mm3 (140-440); RDW Standard Deviation 49.8 fL (36.4-46.3); Red Blood Count 3.67 Miln/mm3 (4.00-5.20); White Blood Count 6.1 Thou/mm3 (3.6-11.0)
[2025-03-16 07:07] LABS: Hemoglobin 8.6 g/dL (12.0-16.0)
[2025-03-16 07:25] LABS: INR 1.5 (0.9-1.3); Prothrombin Time 16.1 Seconds (9.0-12.2)
[2025-03-16 07:27] LABS: Alanine Aminotransferase 9 U/L (10-49); Albumin, Serum 3.3 gm/dL (3.5-5.0); Albumin/Globulin Ratio 1.1 (1.2-2.2); Alkaline Phosphatase 60 U/L (46-116); Anion Gap 8 (7-16); Aspartate Amino Transferase 15 U/L (0-34); BUN/Creatinine Ratio 10 Ratio (12-20); Bilirubin,Total 0.4 mg/dL (0.3-1.2); Blood Urea Nitrogen 9 mg/dL (9-23); Calcium 8.9 mg/dL (8.3-10.6); Calcium (Corrected) 9.5 mg/dL (8.5-10.1); Carbon Dioxide 26.7 mMol/L (20.0-31.0); Chloride 105 mMol/L (98-107); Creatinine (Component) 0.9 mg/dL (0.6-1.3); Estimated Creatinine Clearance 100.4 mL/min (>60); Globulin 3.0 gm/dL (2.3-3.5); Glucose 80 mg/dL (74-106); Magnesium 2.0 mg/dL (1.6-2.6); Osmolality,Calculated 277 (275-295); Phosphorous 3.6 mg/dL (2.4-5.1); Potassium 3.9 mMol/L (3.4-5.1); Sodium 140 mMol/L (136-145); Total Protein 6.3 gm/dL (5.7-8.2); eGFR > 60 See Note
[2025-03-16] MEDS: ASPIRIN EC 81 MG TABEC PO (08:39)
[2025-03-16] MEDS: cefTRIAXone/D5w 1gm IV premix 1 GM/50 ML BAG IV (09:00)
--- NOTE | 2025-03-16 11:39 | PC.SS ---
rounding note: Pending echo. D/c plan is to return home.
[2025-03-16 13:06] LABS: Misc Send Out* See Sep Rpt
[2025-03-16 14:45] LABS: Cocci Serology, IgG Negative (Negative)
[2025-03-16] MEDS: AZITHROMYCIN 250 MG TABLET 500 MG PO (16:03)
--- NOTE | 2025-03-16 17:04 | ESPR_ITS ---
<Statement entered by Oscar Macias MD - 03/18/25 11:17> Patient was seen and examined at bedside. No further hemoptesis was reported. Cardiology recommended to DC warfarin. Her Hb stable at this time. [facility] consulted recommended AI work up and f/u o/p - Patient's plan and care discussed with my attending, Dr. Nirav Macias MD Internal Medicine PGY-3 Documentation for date of: 03/16/25 Subjective Subjective Interval history: Patient seen and examined at bedside. Vitals and labs reviewed. On morning labs, patient was noted to have improved hgb to 8.6, patient denies any coughing up of blood or bleeding of any sort. Patient states her breathing is much improved. Patient denies fever, headache, chest pain, shortness of breath. She has not passed bowel yet but has peed. She is unable to recall her [facility] ID number. [facility] was contacted for confirmation of records but now no longer faxes records and only submits medical records requests through online portals that require [facility] ID #s. Dr. Soria was contacted and is unable to see the patient at his clinic. She gave us the phone number [phone] for her cardiologists office Dr. Nhan Bey but we encountered the same problem. Exam Vital Signs Temp Pulse Resp BP Pulse Ox O2 Del Method O2 Flow Rate 97.6 F 106 H 18 124/83 99 Room Air 2 03/16/25 12:00 03/16/25 13:11 03/16/25 13:11 03/16/25 13:00 03/16/25 13:11 03/16/25 12:00 03/13/25 16:49 Narrative Exam General: No acute distress; A&Ox3; Skin: Extensive hidradenitis suppurativa under both armpits extending down both mid axillary lines rounding out under the breasts bilaterally and in the pubic area extending posteriorly to the gluteal area, does not appear infected; livedo reticularis present on extremities. Warm, dry, intact, no obvious rash. HENT: NCAT, EOMI, not icteric. External ears normal. No rhinorrhea. Tooth infection. Moist mucous membranes Cardiovascular: Regular rate and rhythm, no murmur, +S1/S2. Respiratory: Lungs CTAB GI: Soft, nontender, non-distended. No guarding or rebound tenderness. Extremities: no edema, no cyanosis, no clubbing. Extremity pulses present Neuro: No focal deficits observed. Conversant, moving all extremities. No overt cerebellar signs/incoordination. Psychiatric: Cooperative, appropriate affect. Objective Labs 03/16/25 05:33 03/16/25 05:33 Labs: Laboratory Results - last 24 hr 03/14/25 03/15/25 03/16/25 09:24 17:24 05:33 WBC 6.1 RBC 3.67 L Hgb 9.4 L D 8.6 L Hct 31.0 L 28.3 L MCV 77 L MCH 23.4 L MCHC 30.4 L RDW Std Deviation 49.8 H Plt Count 142 D Neut % (Auto) 69 Lymph % (Auto) 20 [place] % (Auto) 6 Eos % (Auto) 4 Baso % (Auto) 1 Neut # (Auto) 4.2 Lymph # (Auto) 1.2 [place] # (Auto) 0.4 Eos # (Auto) 0.2 Baso # (Auto) 0.1 Immature Gran # (Auto) 0.03 H Absolute Nucleated RBC 0.00 Immature Gran % 1 H Nucleated RBC % 0 PT 16.1 H D INR 1.5 H Sodium 140 Potassium 3.9 Chloride 105 Carbon Dioxide 26.7 Anion Gap 8 BUN 9 Creatinine 0.9 Estim Creat Clear Calc 100.4 eGFR > 60 BUN/Creatinine Ratio 10 L Glucose 80 Calculated Osmolality 277 Calcium 8.9 Corrected Calcium 9.5 Phosphorus 3.6 Magnesium 2.0 Iron 28 L TIBC 263 Ferritin 131 Total Bilirubin 0.4 AST 15 ALT 9 L Alkaline Phosphatase 60 Total Protein 6.3 Albumin 3.3 L Globulin 3.0 Albumin/Globulin Ratio 1.1 L Coccidioides IgG Ab Negative Quality Measures Quality Measures VTE prophylaxis Assessment & Plan Assessment Current Active Medications: Generic Name Dose Route Start Last Admin Trade Name Freq PRN Reason Stop Dose Admin Acetaminophen 650 mg 03/13/25 18:42 Acetaminophen 325 Mg Tablet PO 04/12/25 18:41 Q6H PRN Fever >100.0 or pain 1-3 Hydrocodone Bitart/Acetaminophen 1 tab 03/14/25 18:00 03/16/25 00:42 Hydrocodone/Apap 10/325 Tab PO 03/19/25 17:59 1 tab Q6HR PRN Administration PAIN SCALE 7-10 (Severe Albuterol/Ipratropium 3 ml 03/13/25 19:00 03/16/25 13:10 Albuterol/Ipratropium (Duoneb) Rt Estefany 3 Ml Nebu INH 04/12/25 18:59 3 ml Q6HRRT ASH Administration Aspirin 81 mg 03/14/25 09:00 03/16/25 08:39 Aspirin Ec 81 Mg Tabec PO 04/13/25 08:59 81 mg DAILY ASH Administration Azithromycin 500 mg 03/17/25 09:00 Azithromycin 250 Mg Tablet PO 03/20/25 09:01 QDAY ASH Protocol Azithromycin 500 mg 03/16/25 16:00 03/16/25 16:03 Azithromycin 250 Mg Tablet PO 03/19/25 09:01 500 mg QDAY ASH Administration Protocol Cyclobenzaprine HCl 5 mg 03/14/25 18:00 03/16/25 00:43 Cyclobenzaprine 5 Mg Tablet PO 04/13/25 17:59 5 mg Q6H PRN Administration MUSCLE SPASMS Furosemide 40 mg 03/14/25 06:00 03/16/25 05:32 Furosemide Inj 10 Mg/Ml 4ml Vial IVP 04/13/25 05:59 Not Given BIDD ASH Heparin Sodium (Porcine) 5,000 unit 03/13/25 19:00 03/15/25 08:22 Heparin Sod Inj 5000 Unit/Ml Vial SC 03/27/25 18:59 5,000 unit Q12HR ASH Administration Ceftriaxone Sodium/Dextrose 1 gm in 50 mls @ 100 mls/hr 03/14/25 09:00 03/16/25 09:00 Rocephin/D5w 1gm Iv Premix IV 03/21/25 08:59 100 mls/hr QDAY ASH Administration Azithromycin 500 mg/ Sodium 250 mls @ 250 mls/hr 03/14/25 09:00 03/16/25 15:45 Chloride IV 03/16/25 20:00 Not Given QDAY ASH Melatonin 3 mg 03/13/25 21:00 03/15/25 22:06 Melatonin 3 Mg Tablet PO 04/12/25 20:59 Not Given HS ASH Ondansetron HCl 4 mg 03/13/25 18:42 Ondansetron Inj 2 Mg/Ml Inj 2 Ml IVP 04/12/25 18:41 Q6H PRN NAUSEA OR VOMITING Protocol Pantoprazole Sodium 40 mg 03/17/25 09:00 Pantoprazole 40 Mg Tablet PO 04/16/25 08:59 QDAY [facility] Protocol Pharmacy Consult 1 each 03/14/25 08:49 Pharmacy To Dose Warfarin PO 04/13/25 08:48 QDAY PRN PROTOCOL Trazodone HCl 50 mg 03/13/25 22:57 03/14/25 00:49 Trazodone Hcl 50 Mg Tablet PO 04/12/25 22:56 50 mg HS PRN Administration sleep Plan Patient is a 40-year-old female with past medical history of CHF and pulmonary hypertension diagnosed in 2019, SLE diagnosed in 2010, antiphospholipid antibody syndrome diagnosed in 2013, endocarditis, hidradenitis suppurativa, obesity presented to the emergency department with shortness of breath. Patient was admitted for evaluation and management of respiratory failure (improving). [facility] was unable to be contacted for release and confirmation of her medical records regarding the anti-phospholipid syndrome. Plan to discharge tomorrow following ECHO and specialists approval #SLE #hx of antiphospholipid antibody body syndrome #hx of libman-sacks endocarditis Patient states she takes warfarin 1 mg with goal INR of 3-4 for history of antiphospholipid antibody syndrome diagnosed in 03/14: INR still low at 1.3 03/15: INR 1.0 -Warfarin stopped given low hgb 6.6, given 1 unit pRBC. -Heme/Onc Dr. Soria consulted, will follow up recommendations -Requested medical records from [facility] - Not able to obtain without [facility] ID -Will order and continue to monitor coags: PT: 16.1, INR: 1.5 -Echo ordered: Pending #anemia Hemoglobin on admission is 9.1 with MCV of 75. May be due to iron deficiency anemia, surgical history of gastric sleeve may also be contributing regarding absorption. Patient states she takes 325 mg iron every night. Patient stated she was coughing up blood on morning of admission. Patient states has not been coughing up blood anymore. Denies noticing blood in any bowel movements. Hgb 03/15: 6.6 --> 8.6 on 03/16 - Warfarin stopped given low hgb 6.6, given 1 unit pRBC. - Iron panel ordered, will f/u. ? Will continue to monitor for signs and symptoms of bleeding ? Will continue to monitor hemoglobin #Acute Hypoxic Respiratory Failure #CHF Possibly due to CHF exacerbation after patient endorsed not taking her lasix for 2 days. Possibly due to pneumonia with WBC 10.4, elevated HR 110s, with imaging suggestive of it. Patient breathing well on 2L NC at 97% O2. Admission: Pro-emelia 0.12, BNP 71 CXR: significant left lung pneumonia; Chest CTA was negative for aneurysm, dissection, pulmonary artery emboli; extensive bilateral pneumonia suspicious for mild associated or heart failure Patient given rocephin 1 gm in ED 03/14: Patient states her breathing is much better -Patient will start azithromycin 500 mg and Rocephin 1 gm in the morning -Echo ordered -Patient given DuoNeb inhalers every 6 hours as needed -Will start Lasix 40 mg twice daily tomorrow morning -Ordered cbc, cmp, TSH, lipid panel, A1c will follow-up -Blood cultures drawn, follow up -strict I/O's -daily weight #muscle spasms Patient takes cyclobenzaprine 10 mg po hs at home. -started home medication. #hidradenitis suppurativa Extensive hidradenitis suppurativa under both armpits extending down both mid axillary lines rounding out under the breasts bilaterally and in the pubic area extending posteriorly to the gluteal area, Patient has it covered with gauze; treats it symptomatically at home; does not appear infected. Patient states she has an appointment outpatient to get it further evaluated. -will continue to monitor for infection. Hospital Management: Disposition: tele Diet: Cardiac GI Prophylaxis: n/a Bowel Prophylaxis:Protonix 40 mg q day DVT Prophylaxis: heparin CODE STATUS: Full Code Patient plan of care was discussed with the attending physician, Dr. Gastelum & senior resident Dr. Bharath Mari MD PGY-1 Attending Provider Attestation/Addendum I have discussed and was present for the essential components of the history, physical examination, diagnosis, and treatment plan with the resident. I agree with the patient's care as documented by the resident and amended herein by me. Tello Gastelum DO. Although this document has been carefully reviewed, there may still be some phonetic and other typographical errors. These errors are purely grammatical due to imperfections in the software program and should not be construed in any way to compromise the substance of the patient's medical care during this visit.
--- NOTE | 2025-03-16 19:33 | PC.NURSE ---
patient refused to reinsert iv, dr. villanueva.
--- NOTE | 2025-03-16 20:22 | ESPR_ITS ---
<Statement entered by Alberto Darby MD - 03/22/25 18:44> I personally evaluated examined this patient who has multiple medical problems has lupus anticoagulant antiphospholipid positive but no syndrome I do not see clear evidence of thromboembolic failure do not see a clear indication for anticoagulation wanted to get the records to see if there is any arterial emboli or venous thrombosis none of it is evident. Discussed with the patient who is quite cantankerous did not want to understand the whole problem patient's medical record will be reviewed once it is available to assess if the patient a candidate for lifelong anticoagulation aware of the patient with resident physician treatment plan recommendations discussed agreed with treatment plan recommendations documented by Dr. Mark Anthony Mei Documentation for date of: 03/16/25 Subjective Subjective Interval history: No acute overnight events. Seen and examined at bedside. Denies new or worsening symptoms. Denies fever, chills, headaches, chest pain, sob, cough, GI or urinary symptoms. Primary team has attempted obtaining medical records from [facility]. As discussed above, however the process has been difficult given that patient does not have her medical record. Encourage patient to get in touch with [facility] and obtain medical record. Exam Vital Signs Temp Pulse Resp BP Pulse Ox O2 Del Method O2 Flow Rate 96.9 F 98 18 131/74 H 97 Room Air 2 03/16/25 16:00 03/16/25 19:19 03/16/25 19:19 03/16/25 16:00 03/16/25 19:19 03/16/25 16:00 03/13/25 16:49 Narrative Exam General: Obese lady. Awake and in no acute distress. Conversational and non- toxic appearing. Neurologic: GCS 15. Alert and oriented x3, no gross neurological deficit, and patient able to move all 4 extremities. HEENT: Normocephalic, atraumatic, mucous membranes moist. Pupils reactive to light. Heart: Regular rate and rhythm, normal S1 and S2, no murmurs. Lungs: Clear to auscultation bilaterally with no wheezing or crackles. Abdomen: Soft, nondistended, nontender, positive bowel sounds. No guarding or rebound tenderness. Extremities: No edema. 2+ radial and dorsalis pedis pulses bilaterally. Skin: Warm. Dry. No rash or ecchymoses. Objective Labs 03/17/25 05:33 03/17/25 05:33 Labs: Laboratory Results - last 24 hr 03/14/25 03/15/25 03/16/25 09:24 17:24 05:33 WBC 6.1 RBC 3.67 L Hgb 8.6 L Hct 28.3 L MCV 77 L MCH 23.4 L MCHC 30.4 L RDW Std Deviation 49.8 H Plt Count 142 D Neut % (Auto) 69 Lymph % (Auto) 20 Sampson % (Auto) 6 Eos % (Auto) 4 Baso % (Auto) 1 Neut # (Auto) 4.2 Lymph # (Auto) 1.2 Sampson # (Auto) 0.4 Eos # (Auto) 0.2 Baso # (Auto) 0.1 Immature Gran # (Auto) 0.03 H Absolute Nucleated RBC 0.00 Immature Gran % 1 H Nucleated RBC % 0 PT 16.1 H D INR 1.5 H Sodium 140 Potassium 3.9 Chloride 105 Carbon Dioxide 26.7 Anion Gap 8 BUN 9 Creatinine 0.9 Estim Creat Clear Calc 100.4 eGFR > 60 BUN/Creatinine Ratio 10 L Glucose 80 Calculated Osmolality 277 Calcium 8.9 Corrected Calcium 9.5 Phosphorus 3.6 Magnesium 2.0 Iron 28 L TIBC 263 Ferritin 131 Total Bilirubin 0.4 AST 15 ALT 9 L Alkaline Phosphatase 60 Total Protein 6.3 Albumin 3.3 L Globulin 3.0 Albumin/Globulin Ratio 1.1 L Coccidioides IgG Ab Negative Quality Measures Quality Measures VTE prophylaxis Assessment & Plan Assessment Current Active Medications: Generic Name Dose Route Start Last Admin Trade Name Freq PRN Reason Stop Dose Admin Acetaminophen 650 mg 03/13/25 18:42 Acetaminophen 325 Mg Tablet PO 04/12/25 18:41 Q6H PRN Fever >100.0 or pain 1-3 Hydrocodone Bitart/Acetaminophen 1 tab 03/14/25 18:00 03/16/25 00:42 Hydrocodone/Apap 10/325 Tab PO 03/19/25 17:59 1 tab Q6HR PRN Administration PAIN SCALE 7-10 (Severe Albuterol/Ipratropium 3 ml 03/13/25 19:00 03/16/25 19:19 Albuterol/Ipratropium (Duoneb) Rt Estefany 3 Ml Nebu INH 04/12/25 18:59 3 ml Q6HRRT ASH Administration Aspirin 81 mg 03/14/25 09:00 03/16/25 08:39 Aspirin Ec 81 Mg Tabec PO 04/13/25 08:59 81 mg DAILY ASH Administration Azithromycin 500 mg 03/17/25 09:00 Azithromycin 250 Mg Tablet PO 03/20/25 09:01 QDAY ASH Protocol Azithromycin 500 mg 03/16/25 16:00 03/16/25 16:03 Azithromycin 250 Mg Tablet PO 03/19/25 09:01 500 mg QDAY ASH Administration Protocol Cyclobenzaprine HCl 5 mg 03/14/25 18:00 03/16/25 00:43 Cyclobenzaprine 5 Mg Tablet PO 04/13/25 17:59 5 mg Q6H PRN Administration MUSCLE SPASMS Furosemide 40 mg 03/14/25 06:00 03/16/25 17:44 Furosemide Inj 10 Mg/Ml 4ml Vial IVP 04/13/25 05:59 Not Given BIDD ASH Heparin Sodium (Porcine) 5,000 unit 03/13/25 19:00 03/15/25 08:22 Heparin Sod Inj 5000 Unit/Ml Vial SC 03/27/25 18:59 5,000 unit Q12HR ASH Administration Ceftriaxone Sodium/Dextrose 1 gm in 50 mls @ 100 mls/hr 03/14/25 09:00 03/16/25 09:00 Rocephin/D5w 1gm Iv Premix IV 03/21/25 08:59 100 mls/hr QDAY ASH Administration Melatonin 3 mg 03/13/25 21:00 03/16/25 20:03 Melatonin 3 Mg Tablet PO 04/12/25 20:59 Not Given HS ASH Ondansetron HCl 4 mg 03/13/25 18:42 Ondansetron Inj 2 Mg/Ml Inj 2 Ml IVP 04/12/25 18:41 Q6H PRN NAUSEA OR VOMITING Protocol Pantoprazole Sodium 40 mg 03/17/25 09:00 Pantoprazole 40 Mg Tablet PO 04/16/25 08:59 QDAY [facility] Protocol Pharmacy Consult 1 each 03/14/25 08:49 Pharmacy To Dose Warfarin PO 04/13/25 08:48 QDAY PRN PROTOCOL Trazodone HCl 50 mg 03/13/25 22:57 03/14/25 00:49 Trazodone Hcl 50 Mg Tablet PO 04/12/25 22:56 50 mg HS PRN Administration sleep Plan 40 y/o F with a complex PMH including CHF and pulm HTN (dx 2019), SLE (dx 2010), positive antiphospholipid Ab (2013), h/o Libman-Sacks endocarditis 2019, hidradenitis suppurativa, and obesity s/p gastric sleeve (2015), presenting with hemoptysis and shortness of breath. Admitted for suspected heart failure exacerbation and subtherapeutic INR. #Acute hypoxemic respiratory failure #Hemoptysis #Extensive pneumonia bilaterally ? History of CHF #SLE with positive antiphospholipid antibodies #Subtherapeutic INR #Chronic microcytic anemia CTA chest ruled out pulmonary embolism but revealed extensive bilateral pneumonia. Her last echocardiogram in 2019 showed normal ejection fraction, with no evidence of thrombus, though records from that hospitalization noted possible Libman?Sacks endocarditis. She was previously suspected by [facility] to have a cardiac thrombus, but this is considered unlikely given the absence of chest pain, DVT, stroke, or PE, and the low likelihood of antiphospholipid syndrome despite positive antibodies. Clarification from prior [facility] records is needed to confirm the nature of the suspected thrombus. She remains hemodynamically stable, though heart failure status since 2019 is unclear, and a repeat echocardiogram has been ordered. The plan is to continue IV antibiotics for pneumonia and maintain diuretic therapy with Lasix. Warfarin is being held due to ongoing hemoptysis, likely secondary to infection and coughing, with the possibility of restarting if hemoptysis resolves and prior records confirm thromboembolic disease, targeting an INR of 2?3 if she needs it. Hemoglobin remains chronically low at 8.1, with no current evidence of significant bleeding; transfusion is recommended if Hgb falls below 7. The patient has been encouraged to obtain her [facility] medical record number to facilitate review of prior findings. Long-term morphine use is not indicated, and long-term anticoagulation is not warranted at this time given the absence of confirmed thrombus or thromboembolic events. She wishes to leave the hospital, and given her stability, discharge with close cardiology follow- up, possibly with Dr. Pinzon, is reasonable once the echocardiogram is completed. #Anemia #Muscle spasms #Hidradenitis suppurativa - Managed per primary team Case was discussed with attending physician, Dr. Darby. Mark Anthony Mei, PGY II This document was transcribed using voice recognition technology. Minor inaccuracies may be present.
--- NOTE | 2025-03-16 20:53 | PC.NURSE ---
patient educated the importance of having IV access since no IV access, patient is still refusing. MD made aware of patient having no IV access and refusing to have IV placed. no new orders received at this time.
[2025-03-17] VITALS (9 sets, daily range): BP systolic 97–149; BP diastolic 64–96; PULSE 87–118; RESP 15–97; TEMP 36.2–36.6; O2SAT 96–99; BMI 45.5
[2025-03-17] MEDS: ALBUTEROL/IPRATROPIUM (Duoneb) RT SOL 3 ML NEBU INH (01:22)
[2025-03-17 06:40] LABS: INR 1.4 (0.9-1.3); Prothrombin Time 15.1 Seconds (9.0-12.2)
[2025-03-17 06:51] LABS: Alanine Aminotransferase 9 U/L (10-49); Albumin, Serum 3.4 gm/dL (3.5-5.0); Albumin/Globulin Ratio 1.1 (1.2-2.2); Alkaline Phosphatase 62 U/L (46-116); Anion Gap 9 (7-16); Aspartate Amino Transferase 15 U/L (0-34); BUN/Creatinine Ratio 8 Ratio (12-20); Bilirubin,Total 0.3 mg/dL (0.3-1.2); Blood Urea Nitrogen 8 mg/dL (9-23); Calcium 9.0 mg/dL (8.3-10.6); Calcium (Corrected) 9.5 mg/dL (8.5-10.1); Carbon Dioxide 26.2 mMol/L (20.0-31.0); Chloride 106 mMol/L (98-107); Creatinine (Component) 1.0 mg/dL (0.6-1.3); Estimated Creatinine Clearance 88.7 mL/min (>60); Globulin 3.2 gm/dL (2.3-3.5); Glucose 86 mg/dL (74-106); Magnesium 2.1 mg/dL (1.6-2.6); Osmolality,Calculated 278 (275-295); Phosphorous 4.0 mg/dL (2.4-5.1); Potassium 3.7 mMol/L (3.4-5.1); Sodium 141 mMol/L (136-145); Total Protein 6.6 gm/dL (5.7-8.2); eGFR > 60 See Note
[2025-03-17 06:52] LABS: Basophils # (Auto) 0.1 Thou/mm3 (0.0-0.2); Basophils % (Auto) 1 % (0-2.5); Eosinophils # (Auto) 0.2 Thou/mm3 (0.0-0.5); Eosinophils % (Auto) 4 % (0-10); Hematocrit 29.8 % (36.0-46.0); Hemoglobin 9.0 g/dL (12.0-16.0); Immature Granulocytes Auto 0.02 Thou/mm3 (0.00-0.00); Lymphocytes # (Auto) 1.5 Thou/mm3 (1.0-4.8); Lymphocytes % (Auto) 24 % (10-50); Mean Corpuscular HGB Conc 30.2 g/dl (31.0-37.0); Mean Corpuscular Hemoglobin 23.6 pg (25.0-35.0); Mean Corpuscular Volume 78 fL (80-100); Monocytes # (Auto) 0.4 Thou/mm3 (0.0-0.8); Monocytes % (Auto) 7 % (0-12); Neutrophils # (Auto) 3.8 Thou/mm3 (1.8-7.7); Neutrophils % (Auto) 64 % (37-80); Nucleated Red Blood Cell # 0.00 Thou/mm3 (0.00-0.00); Nucleated Red Blood Cell % 0 /100 WBC (0); Platelet Count 163 Thou/mm3 (140-440); RDW Standard Deviation 51.3 fL (36.4-46.3); Red Blood Count 3.82 Miln/mm3 (4.00-5.20); White Blood Count 6.0 Thou/mm3 (3.6-11.0)
[2025-03-17] MEDS: ASPIRIN EC 81 MG TABEC PO (08:26)
[2025-03-17] MEDS: AZITHROMYCIN 250 MG TABLET 500 MG PO (08:26)
[2025-03-17] MEDS: PANTOPRAZOLE 40 MG TABLET PO (08:26)
--- NOTE | 2025-03-17 20:32 | ESDS_ITS ---
<Statement entered by Oscar Macias MD - 03/18/25 11:50> patient was seen and examined at bedside. Agree on the DC summary on this note. - Patient's plan and care discussed with my attending, Dr. Nirav Macias MD Internal Medicine PGY-3 Planned Discharge Date 03/17/25 DS: Providers Provider Date of admission: 03/13/25 18:34 Primary care physician: MIHAI Bowden Admitting Provider: Benjamin Gastelum DO Attending Provider on Admission: Benjamin Gastelum DO Consults: 03/14/25 00:16 Referral Wound Care Stat Comment: Hidradenitis Suppurativa 03/14/25 11:41 Consult to Cardiology Urgent Comment: inr AND [place] Consulting Provider: Alberto Darby 03/14/25 12:40 Consult to Hematology Routine Comment: Consulting Provider: Olya Soria 03/16/25 11:35 Referral OP Wound Healing Dept Routine Comment: Instructions: Hidradenitis suppurativa over left and right axilla, left and right breast, gluteal cleft and perineum Attending Provider on DC: RESIDENT Graciela Discharging Provider: RESIDENT Graciela DS: Diagnosis Problem List Completed Was Problem List Reviewed/Reconciled?: Yes Hospital Course Hospital Course Hospital course: Patient is a 40-year-old female with past medical history of CHF and pulmonary hypertension diagnosed in 2019, SLE diagnosed in 2010, antiphospholipid antibody syndrome diagnosed in 2013, endocarditis, hidradenitis suppurativa, obesity presented to the emergency department with shortness of breath and hemoptesis. In the ED patient was hypoxic (O2:84%) and started on nonrebreather (O2:94%), she was tachy HR:128 with elevated BPs 132/84. Labs were noncontributory other than microcytic anemia and prolonged APTT: 42.4, but CXR revealed L lung PNA with CTA c/f bilateral PNA w/o signs of PE. She was given Morphine 5 mg, ondansetron 4 mg x 1, ceftriaxone 1 g. Patient was admitted for evaluation and management of respiratory failure. Hospital Course: Her warfarin was held due to HgB drop to 6.6 and unit of pRBC given which improved the HgB. It was also recommended by the benefits consulting analyst that patient does not need to be on warfarin for her endocrditis. Coags were monitored. Her PNA was managed with lasix, azithromycin and rocephin, which improved her condition. Cardiology was consulted and an ECHO showed improved heart function and findings consistent with patient reported Danyelle ward endocarditis. [place] was asked for medical records but were unable to provide them due to patient not having her [place] ID#. Patient improved and was safe to discharge and follow up with her scooping machine tender Dr. Torre and benefits consulting analyst in [place]. Discharge instructions ? Follow-up with your primary care physician within 1 week from discharge ? Follow-up with your scooping machine tender within 2 weeks from discharge ? Follow-up with your benefits consulting analyst within 2 weeks from discharge ? Continue antibiotics Augmentin for 4 more days 2 times a day ? Follow-up with a mediation commissioner within 2 weeks from discharge ? In case of worsening of your symptoms please return to the ED as soon as possible ? Anticipate important to visit her dentist to fix your dental caries and infection as it might affect your heart valve ? Use medications as prescribed ? Wound care for your hidradenitis suppurativa as below Folow up at [facility] for your Hidradenitis suppurativa. [address] [facility]. Call [phone] for appointment. Wound care over left and right axilla, left and right breast, gluteal cleft and perineum: shower daily with diluted hibicleanse soap (over the counter). Pat dry. Apply abd pad over affected areas and lightly secure with tape or clothing. Change at least daily and as needed for falling off or saturating. If active bleeding occurs, apply tight dressing and return to MD or ER. ? Notify primary doctor or return to Emergency Room if any of the following: ? Fever above 100.6? F. ? Increased pain ? Increase swelling ? Red streaks around your wound ? Drainage becomes foul smelling or changes color ? The wound is larger or deeper ? The wound looks dried out or dark ? Bleeding that does not stop with holding pressure #Acute Hypoxic Respiratory Failure #Hemoptesis most likely 2/2 warfarin #CHF #SLE #hx of antiphospholipid antibody body syndrome #hx of libman-sacks endocarditis #anemia #muscle spasms #hidradenitis suppurativa Patient's plan and care discussed with my attending, Dr. Gastelum, and supervising residents Oscar Macias MD, and MD Micky Ratliff MD Internal Medicine PGY-1 Time Spent with Patient Time attestation: Total time spent providing and/or coordinating discharge services: Time spent: Greater than 30 minutes Exam Vital Signs Temp Pulse Resp BP Pulse Ox O2 Del Method O2 Flow Rate 97.4 F 98 17 149/96 H 98 Room Air 3 03/17/25 18:00 03/17/25 18:00 03/17/25 18:00 03/17/25 18:00 03/17/25 18:00 03/17/25 18:00 03/17/25 16:00 Narrative Exam General: No acute distress; A&Ox3; Skin: Extensive hidradenitis suppurativa under both armpits extending down both mid axillary lines rounding out under the breasts bilaterally and in the pubic area extending posteriorly to the gluteal area, does not appear infected; livedo reticularis present on extremities. Warm, dry, intact, no obvious rash. HENT: NCAT, EOMI, not icteric. External ears normal. No rhinorrhea. Tooth infection. Moist mucous membranes Cardiovascular: Regular rate and rhythm, no murmur, +S1/S2. Respiratory: Lungs CTAB GI: Soft, nontender, non-distended. No guarding or rebound tenderness. Extremities: no edema, no cyanosis, no clubbing. Extremity pulses present Neuro: No focal deficits observed. Conversant, moving all extremities. No overt cerebellar signs/incoordination. Psychiatric: Cooperative, appropriate affect. Discharge Plan Plan Patient Disposition: HOME (Self Care) Patient condition on transfer: Stable and Benefits outweigh risks Care Plan Goals: Discharge instructions ? Follow-up with your primary care physician within 1 week from discharge ? Follow-up with your scooping machine tender within 2 weeks from discharge ? Follow-up with your benefits consulting analyst within 2 weeks from discharge ? Continue antibiotics Augmentin for 4 more days 2 times a day ? Follow-up with a mediation commissioner within 2 weeks from discharge ? In case of worsening of your symptoms please return to the ED as soon as possible ? Anticipate important to visit her dentist to fix your dental caries and infection as it might affect your heart valve ? Use medications as prescribed ? Wound care for your hidradenitis suppurativa as below Folow up at [facility] for your Hidradenitis suppurativa. [address] [place] [address]. Call [phone] for appointment. Wound care over left and right axilla, left and right breast, gluteal cleft and perineum: shower daily with diluted hibicleanse soap (over the counter). Pat dry. Apply abd pad over affected areas and lightly secure with tape or clothing. Change at least daily and as needed for falling off or saturating. If active bleeding occurs, apply tight dressing and return to MD or ER. ? Notify primary doctor or return to Emergency Room if any of the following: ? Fever above 100.6? F. ? Increased pain ? Increase swelling ? Red streaks around your wound ? Drainage becomes foul smelling or changes color ? The wound is larger or deeper ? The wound looks dried out or dark ? Bleeding that does not stop with holding pressure Prescriptions/Referrals Prescriptions/Med Rec: New amoxicillin-pot clavulanate 875-125 mg tablet 1 tab PO BID 4 Days Qty: 8 0RF Continued aspirin 81 mg Tablet,Chewable 81 mg PO QDAY furosemide [Lasix] 40 mg tablet 40 mg PO QDAY Zepbound 12.5 mg/0.5 mL pen injector 12.5 mg SUBCUT QWEEK Patient Comments: INJECT 12.5 MG SUBCUTANEOUSLY ONE TIME PER WEEK FOR 28 DAYS cyclobenzaprine 10 mg tablet 10 mg PO HS Patient Comments: TAKE 1 TABLET BY MOUTH EVERY DAY AT BEDTIME FOR 30 DAYS trazodone 50 mg tablet 50 mg PO HS PRN (Reason: sleep) Patient Comments: TAKE 1 TABLET BY MOUTH EVERYDAY AT BEDTIME albuterol sulfate 90 mcg/actuation HFA aerosol inhaler 2 puff INHALATION Q4H PRN (Reason: shortness of breath or wheezing) Patient Comments: INHALE 2 PUFFS BY MOUTH EVERY 4 HOURS NEEDED FOR 30 DAYS, FOR SHORTNESS OF BREATH nitroglycerin 0.4 mg tablet, sublingual 0.4 mg BUCCAL Q5MIN PRN (Reason: chest pain) Patient Comments: PLACE 1 TABLET UNDER TONGUE EVERY 5 MINUTES NEEDED FOR CHEST PAIN. MAX: 3 TABLETS. CALL 911 Changed ferrous sulfate 325 mg (65 mg iron) tablet 325 mg PO Q OTHER DAY 14 Days Qty: 7 0RF Patient Comments: TAKE 1 TABLET BY MOUTH EVERY DAY Discontinued sertraline 100 mg Tablet 100 mg PO QDAY hydroxychloroquine [Plaquenil] 200 mg Tablet 200 mg PO QDAY fluticasone propionate [Flonase Allergy Relief] 50 mcg/actuation spray, suspension 50 mcg INTRANASAL Q12H Qty: 18.2 0RF Rx Instructions: administer into each nostril warfarin 1 mg tablet 1 mg PO QDAY Patient Comments: TAKE 1 TABLET BY MOUTH EVERY DAY azithromycin 250 mg tablet 250 mg PO QDAY Patient Comments: TAKE 2 TABLETS BY MOUTH TODAY, THEN TAKE 1 TABLET DAILY FOR 4 DAYS DIRECTED Referrals: Karyna Caballero FNP [Primary Care Provider] - Patient/Caregiver Discharge Instructions Education Materials: Anemia, Nutrition for Wound Healing, Coping with Heart Failure, Wound Care Dc, Hidradenitis Suppurativa Print Language: Citizen Of [place] Stand Alone Forms: Marina Award Info., Patient Portal Info Letter Discharge Order Discharge Orders: Discharge (Routine); Ordered 03/17/25 Ordered By: Oscar Macias Quality Discharge Quality Measures VTE prophylaxis Attestestation MD Attestation I have discussed and was present for the essential components of the discharge history, physical examination, diagnosis, and discharge treatment plan with the resident. I agree with the patient's discharge care as documented by the resident and amended herein by me. Tello Gastelum DO. The patient understood all discharge instructions, all questions were answered satisfactorily. The patient was instructed to return to the Emergency Department is symptoms worsened or persisted. Patient significantly proved, will hold warfarin for now until follow-up with rheumatology in which she has an appointment at the end of month with Dr. Torre in [place]. The patient was anemic on this visit requiring transfusion. No evidence of thrombi was indicated on echocardiogram performed during this hospitalization. Patient was stable, afebrile, tolerating p.o. intake and ambulatory at time of discharge home. Although this document has been carefully reviewed, there may still be some phonetic and other typographical errors. These errors are purely grammatical due to imperfections in the software program and should not be construed in any way to compromise the substance of the patient's medical care during this visit.
[2025-03-19 11:19] LABS: Cardiolipin Ab (IgA) 56.6 APL-U/mL; Cardiolipin Ab (IgG) >112.0 GPL-U/mL
[2025-03-20 06:43] LABS: Cardiolipin Ab (IgM) <2.0 MPL-U/mL
== END 2025-03-17 18:59 | disposition home or self-care (01) | DRG 145 ==
LOC: SERX 17:49 → SERHOLD 18:50 → S2NX 21:28
PROVIDERS: Specialist; Student in an Organized Health Care Education/Training Program; Admitting Provider Student in an Organized Health Care Education/Training Program; Emergency Provider Emergency Medicine; PCP Nurse Practitioner; Visit Provider Student in an Organized Health Care Education/Training Program
DX: R04.2 Hemoptysis (principal); J18.9 Pneumonia, unspecified organism; J96.01 Acute respiratory failure with hypoxia; D68.61 Antiphospholipid syndrome; L73.2 Hidradenitis suppurativa; D50.0 Iron deficiency anemia secondary to blood loss (chronic); M32.11 Endocarditis in systemic lupus erythematosus; I27.20 Pulmonary hypertension, unspecified; T45.515A Adverse effect of anticoagulants, initial encounter; Z79.01 Long term (current) use of anticoagulants; F17.290 Nicotine dependence, other tobacco product, uncomplicated; E66.9 Obesity, unspecified; Z68.42 Body mass index [BMI] 45.0-49.9, adult; I50.9 Heart failure, unspecified; J32.9 Chronic sinusitis, unspecified; Z88.5 Allergy status to narcotic agent; Z90.49 Acquired absence of other specified parts of digestive tract; Z98.84 Bariatric surgery status; Z86.79 Personal history of other diseases of the circulatory system; T45.516A Underdosing of anticoagulants, initial encounter
CPT/HCPCS: 36415; 71045; 71275; 80053; 80061; 82728; 83036; 83540; 83550; 83605; 83615; 83690; 83735; 83880; 84100; 84145; 84439; 84443; 84484; 84703; 85014; 85018; 85025; 85610; 85652; 85730; 86147; 86331; 86635; 86850; 86900; 86901; 86923; 87040; 87400; 87811; 93005; 93306; 94640; 94762; 96365; 96366; 96375; 99284; A4649; A9270; J0456; J0696; J1644; J2270; J2405; J2470; J7050; P9016; Q9967

== ENCOUNTER → 2025-06-19 | Outpatient (CLI) | payer MEDICAID, SELFPAY ==
[2025-06-19 13:42] VITALS: BMI 41.3
[2025-06-19 14:17] LABS: Collection Type, Urine Clean Catch
[2025-06-19 14:30] LABS: Basophils # (Auto) 0.1 Thou/mm3 (0.0-0.2); Basophils % (Auto) 1 % (0-2.5); Eosinophils # (Auto) 0.2 Thou/mm3 (0.0-0.5); Eosinophils % (Auto) 2 % (0-10); Hematocrit 34.6 % (36.0-46.0); Hemoglobin 10.3 g/dL (12.0-16.0); Immature Granulocytes Auto 0.04 Thou/mm3 (0.00-0.00); Lymphocytes # (Auto) 1.4 Thou/mm3 (1.0-4.8); Lymphocytes % (Auto) 13 % (10-50); Mean Corpuscular HGB Conc 29.8 g/dl (31.0-37.0); Mean Corpuscular Hemoglobin 23.0 pg (25.0-35.0); Mean Corpuscular Volume 77 fL (80-100); Monocytes # (Auto) 0.6 Thou/mm3 (0.0-0.8); Monocytes % (Auto) 6 % (0-12); Neutrophils # (Auto) 8.1 Thou/mm3 (1.8-7.7); Neutrophils % (Auto) 78 % (37-80); Nucleated Red Blood Cell # 0.00 Thou/mm3 (0.00-0.00); Nucleated Red Blood Cell % 0 /100 WBC (0); Platelet Count 219 Thou/mm3 (140-440); RDW Standard Deviation 43.6 fL (36.4-46.3); Red Blood Count 4.48 Miln/mm3 (4.00-5.20); White Blood Count 10.3 Thou/mm3 (3.6-11.0)
[2025-06-19 14:37] LABS: Partial Thromboplastin Time 44.0 Seconds (22.0-36.0)
[2025-06-19 14:38] LABS: Amorphous Crystals,Urine Present (Absent); Bacteria,Urine 1+; Bilirubin,Urine 1+ (Negative); Blood,Urine Trace (Negative); Clarity,Urine Turbid (Clear/Hazy); Color,Urine Yellow (Lt Yel-Yel); Glucose, Urine Negative (Negative); Ketones,Urine Negative (Negative); Leukocyte Esterase,Urine Positive (Negative); Nitrite,Urine Negative (Negative); PH,Urine 5.5 (5.0-7.0); Protein,Urine 1+ (Neg - Trace); RBC,Urine 9 /hpf (0-3); Specific Gravity,Urine 1.033 (1.001-1.035); Squamous Epithelial Cell,Urine 27 /hpf (0-5); Urobilinogen,Urine 2.0 mg/dL (0.0-1.0); WBC,Urine 62 /hpf (0-5)
--- NOTE | 2025-06-19 14:43 | SUR.PREOP ---
Case reviewed with Dr Young.
--- NOTE | 2025-06-19 14:44 | SUR.PREOP ---
Pt did not take the CHG soap, she stated she has open wounds throughout her body from hydradenitis
[2025-06-19 14:47] LABS: Alanine Aminotransferase 9 U/L (10-49); Albumin, Serum 4.2 gm/dL (3.5-5.0); Albumin/Globulin Ratio 1.2 (1.2-2.2); Alkaline Phosphatase 74 U/L (46-116); Anion Gap 9 (7-16); Aspartate Amino Transferase 18 U/L (0-34); BUN/Creatinine Ratio 11 Ratio (12-20); Bilirubin,Total 0.4 mg/dL (0.3-1.2); Blood Urea Nitrogen 11 mg/dL (9-23); Calcium 9.5 mg/dL (8.3-10.6); Calcium (Corrected) 9.5 mg/dL (8.5-10.1); Carbon Dioxide 25.6 mMol/L (20.0-31.0); Chloride 105 mMol/L (98-107); Creatinine (Component) 1.0 mg/dL (0.6-1.3); Estimated Creatinine Clearance 88.5 mL/min (>60); Globulin 3.5 gm/dL (2.3-3.5); Glucose 92 mg/dL (74-106); Osmolality,Calculated 278 (275-295); Potassium 3.7 mMol/L (3.4-5.1); Sodium 140 mMol/L (136-145); Total Protein 7.7 gm/dL (5.7-8.2); eGFR > 60 See Note
--- NOTE | 2025-06-19 15:14 | SUR.PREOP ---
PTT 44, Dr Crowe notified and ok to proceed, no new orders.
[2025-06-19 15:46] LABS: Beta HCG,Quantitative 1 mIU/mL (<5.0)
--- NOTE | 2025-06-19 17:42 | PD.ANESPROG ---
Documentation for date of: 06/19/25 BRIEF PRE-OP ANESTHESIA NOTE: This patient was scheduled for elective hydradenitis surgery with Dr. Moiz Crowe next Sunday, Jun 22, however it's cancelled now due to patient's cardiac condition. Based on chart review, this patient has h/o CHF, severe pulmnary HTN, and mitral disease. It'd be safer for this patient to have surgery at a place with cardiac anesthesiology service and capability to manage pulmonary HTN, so I recommended to Dr. Maciel to refer her elsewhere with such capability unless it's urgent procedure and he agreed to cancel it here. I called and spoke with the patient on the phone and verified her hx. I informed her of her echo results from Mar 2025, which she wasn't aware of. I informed her about this, gave her the same recommendation, and she agreed. I advised her to contact Dr. Crowe's office with any question and help finding place for her surgery. She had no further questions for me. Naman Young MD
== END | disposition home or self-care (01) ==
LOC: SLAB 06-23 11:01
PROVIDERS: Anesthesiology; PCP Family Medicine; Referring Provider Specialist; Visit Provider Specialist
DX: Z01.812 Encounter for preprocedural laboratory examination (principal); L73.2 Hidradenitis suppurativa
CPT/HCPCS: 36415; 80053; 81001; 84702; 85025; 85730